=== PATIENT | female | born 1960 | race Hispanic/Latino ===

== ENCOUNTER 2017-11-30 06:12 | Day surgery (SDC) | payer MEDICAID ==
[~2017-11-30 06:12] MED LIST: LACTATED RINGERS 1,000 ML IV SCH; NACL BACTERIOSTATIC INFILTRATI ONE; VERSED IV NR
[2017-11-30] MEDS ORDERED: MARCAINE 0.5% 30 ML INFILTRATI ONE (06:50)
[2017-11-30] MEDS ORDERED: XYLOCAINE 1% 20 mL ONE (06:50)
[2017-11-30] MEDS ORDERED: ANCEF/STERILE WATER 2 GM/20 ML IV NR (07:00)
[2017-11-30] MEDS ORDERED: HEPARIN SUB-Q NR (07:00)
[2017-11-30] MEDS ORDERED: DIPRIVAN 10 MG/ML IV ONE (07:13)
[2017-11-30] MEDS ORDERED: VERSED ONE (07:14)
[2017-11-30] MEDS ORDERED: SUBLIMAZE ONE (07:14)
[2017-11-30] MEDS ORDERED: ZEMURON IV ONE (07:15)
[2017-11-30] MEDS ORDERED: ROBINUL ONE (07:15)
[2017-11-30] MEDS ORDERED: XYLOCAINE MPF 2% ONE (07:15)
[2017-11-30] MEDS ORDERED: TORADOL ONE (07:16)
[2017-11-30] MEDS ORDERED: BLOXIVERZ ONE (07:16)
[2017-11-30] MEDS ORDERED: ZOFRAN ONE (07:16)
[2017-11-30] MEDS ORDERED: PEPCID IV ONE (07:23)
[2017-11-30] MEDS ORDERED: REGLAN ONE (07:24)
[2017-11-30 07:30] LABS: BUN/Creatinine Ratio 31; Blood Urea Nitrogen 22 mg/dL (7-17); Calcium 8.9 mg/dL (8.4-10.2); Hemolysis Index 2
[2017-11-30] MEDS ORDERED: QUELICIN ONE (07:36)
[2017-11-30] MEDS ORDERED: NACL 0.9% IR ONE (08:07)
[2017-11-30] MEDS ORDERED: MARCAINE 0.5% INFILTRATI ONE (08:07)
[2017-11-30] MEDS ORDERED: XYLOCAINE 1% 20 mL INFILTRATI ONE ×2 (08:07)
[2017-11-30] MEDS ORDERED: ZOFRAN IV PRN (08:43)
[2017-11-30] MEDS ORDERED: DILAUDID IV PRN (08:43)
[2017-11-30] MEDS ORDERED: DEMEROL IV PRN (08:43)
--- NOTE | 2017-11-30 08:43 | Anesthesia Consultation ---
Anesthesia Consult and Med Hx Date of service: 11/30/17 - Airway Anesthetic Teeth Evaluation: Poor ROM Head & Neck: Inadequate Mental/Hyoid Distance: Inadequate Mallampati Class: Class III Intubation Access Assessment: Possibly Difficult - Pulmonary Exam CTA: Yes - Cardiac Exam Cardiac Exam: RRR - Pre-Operative Health Status ASA Pre-Surgery Classification: ASA3 Proposed Anesthetic Plan: General - Pulmonary Hx Asthma: Yes Hx Sleep Apnea: Yes - Cardiovascular System Hx Hypertension: Yes (5 YEARS) - Central Nervous System Hx Back Pain: Yes Hx Psychiatric Problems: Yes - Other Systems Hx Alcohol Use: No Hx Substance Use: No Hx Cancer: No Hx Obesity: Yes
--- NOTE | 2017-11-30 08:43 | Anesthesia Day of Surgery ---
Anesthesia Day of Surgery - Day of Surgery Patient Examined: Yes Patient H&P Reviewed: Yes Patient is NPO: Yes
--- NOTE | 2017-11-30 10:02 | Post Operative Note ---
Date of procedure: 11/30/17 (dictation#[id number]) Pre-op diagnosis: Symptomatic Cholelithiasis Post-op diagnosis: same (Also, chronic cholecystitis) Findings: Distended gallbladder with large stone. normal cholangiogram. gallbladder densely adhered to liver bed Procedure: lap robin with IOC Anesthesia: GETA Surgeon: SHARLA SARMIENTO Estimated blood loss: 50-100ml Pathology: list (gallbladder) Specimen disposition: to lab Condition: stable Disposition: PACU
--- NOTE | 2017-11-30 10:07 | Discharge Summary ---
Providers - Providers Date of Admission: 11/30/17 Attending physician: SHARLA SARMIENTO MD Primary care physician: EVENS ROD Hospitalization Reason for admission: day surgery Condition: Stable Pertinent studies: HIDA - abnormal Procedures: lap robin with IOC Hospital course: uneventful day surgery Disposition: DC-01 TO HOME OR SELFCARE Time spent for discharge: 15min - Discharge Diagnoses (1) Symptomatic cholelithiasis Status: Acute Comment: Pt tolerated procedure well. Core Measure Documentation - Palliative Care Palliative Care/ Comfort Measures: Not Applicable - Core Measures Any of the following diagnoses?: none - VTE Discharge Requirements Deep Vein Thrombosis/Pulmonary Embolism Present on Admission: No Exam - Constitutional Vitals: Temp Pulse Resp BP Pulse Ox 98.6 F 78 18 160/77 96 11/30/17 07:28 11/30/17 07:28 11/30/17 07:28 11/30/17 07:28 11/30/17 07:28 General appearance: Present: no acute distress, obese - Respiratory Respiratory effort: normal - Abdominal General gastrointestinal: Present: soft, tender (incisional ) - Psychiatric Psychiatric: other (tired) - Neurologic Neurologic: CNII-XII intact, moves all extremities Plan Diet: advance as tolerated (liquids at first) Wound: open to air, keep clean and dry, other (may shower in 48 hours) Special Instructions: no heavy lifting (and no driving until off pain meds) Follow up with: EVENS ROD [Primary Care Provider] - 7 Days SHARLA SARMIENTO MD [Staff Physician] - 14 Days Prescriptions: HYDROcodone/ACETAMINOPHEN [Hydrocodon-Acetaminophen 5-325] 2 each PO Q6H PRN # 30 tablet PRN Reason: Pain
[2017-11-30] MEDS ORDERED: ATROVENT IH ONE (11:23)
[2017-11-30] MEDS ORDERED: ATROVENT IH SCH (11:30)
--- NOTE | 2017-11-30 16:14 | Post Anesthesia Evaluation ---
- Post Anesthesia Evaluation Patient Participated: Yes Airway Patent: Yes Stable Respiratory Function: Yes Nausea/Vomiting: No Temp > 96.8F: Yes Pain Manageable: Yes Adequeate Hydration: Yes Anesthesia Complications: No
[2017-11-30 21:26] VITALS: BP 143/82
--- NOTE | 2017-12-01 10:25 | Operative Report ---
PREOPERATIVE DIAGNOSES: 1. Symptomatic cholelithiasis. 2. Biliary dysfunction. POSTOPERATIVE DIAGNOSES: 1. Symptomatic cholelithiasis. 2. Biliary dysfunction. 3. Chronic cholecystitis. PROCEDURE PERFORMED: Laparoscopic cholecystectomy with intraoperative cholangiogram. ATTENDING PHYSICIAN: Dr. Cristina Damon. ANESTHESIA: General. ESTIMATED BLOOD LOSS: 50 mL. FLUIDS: 1 liter crystalloid. FINDINGS: Densely adherent distended gallbladder with large stone. SPECIMEN: Gallbladder. DRAINS: None. COMPLICATIONS: Stable, transported to Recovery Room. INDICATIONS: This is a 57-year-old female, who has been having complaints of right upper quadrant pain associated with nausea. Evaluation revealed HIDA scan that showed abdominal pain with CCK administration that was consistent with her prior pain. The patient was assessed to have some component of symptomatic cholelithiasis and biliary dysfunction. PROCEDURE: Risks, benefits, alternatives were explained to the patient. Risks included but were not limited to infection, bleeding, pain, injury to surrounding structures, possible need for further surgery in the future, possible nonresolution or incomplete resolution of symptoms. The patient understood and consented to laparoscopic cholecystectomy. OPERATIVE NOTE: The patient was brought to the operating room and placed in supine position. After adequate general anesthesia was established, patient was prepped and draped in usual sterile fashion. Antibiotics had been administered prior to start of the case. SCDs were in place. Time-out was called. I began by placing a Veress needle in left upper quadrant. I was able to insufflate on the first attempt. We then placed a 5 mm port on the right side of the abdomen using the Optiview technique. I was able to enter the peritoneal cavity safely. Under direct vision, I placed a 5 mm port in the epigastric area and then another one in between the 2 ports and finally a 12 mm port in the supraumbilical position. Please note there were no adhesions from her prior surgeries. Gallbladder was found to be markedly distended. I was unable to grab it; therefore, using an aspiration needle, we partially decompressed it and then clipped the opening to minimize bile spillage. This was a very difficult case from the standpoint that the gallbladder was densely adhered to the liver bed such that slight retraction caused tearing of the liver. A thin layer of the liver bed was pulled up every time we tried to retract the gallbladder, which led to a lot of oozing that we got controlled with a combination of clips and Harmonic scalpel. We did have to insert a Ray-Ivonne in order to apply pressure at some points to control bleeding. I ended up using a partial top down approach in order to establish the layer and prevent further elevation of the liver bed tissue to minimize further bleeding. Once we were able to get into the plane between the gallbladder and the liver, then, we were able to delineate the other areas that we have previously had retracted and tried to separate the thin layer of liver tissue from the gallbladder so as not to cause further bleeding. This added at least 30 minutes extra to the case while we try to separate the densely adherent gallbladder from the liver bed. Thereafter, we proceeded down to the cystic duct. The duodenum was in close proximity, so we had to take extra care. As we have done a good portion of the dissection from the top down, we had much better sense of where the cystic duct was. One clip was placed proximally in relation to the gallbladder. Opening was made in the cystic duct and cholangiogram catheter was inserted. Cholangiogram was done. I saw very good filling of the cystic duct and common duct. There was quick emptying into the duodenum. It tapered normally and we had filling of the left and right common hepatic ducts. I saw no evidence of any filling defects. We had adequate cystic duct that was separate from the common duct. We then proceeded to place three clips distally on the cystic duct in relation to gallbladder and then divided the cystic duct. I dissected out the cystic artery, placed clips on either side and then divided with a Harmonic scalpel and there was only a small amount of tissue remaining that we divided with the Harmonic scalpel, again taking care to push down the liver tissue and not cause further bleeding. The specimen was left on the side. We thoroughly irrigated out the liver bed. We saw excellent hemostasis. Clips were all in place. I placed the specimen and the Ray-Ivonne in the EndoCatch bag and then removed it from the umbilical site. We had already anticipated that we would have to extend the fascia, which we went ahead and did rather than try to stretch it. We removed the specimen and then I closed the fascial defect with a [id number]-[id number] stitch using an 0 Vicryl stitch. We then reinsufflated the abdomen. The repair looked good. There was no bowel or omentum trapped in the repair. We took one last look at the gallbladder bed. It was completely hemostatic. We saw no evidence of any bile drainage or bleeding. Therefore, we felt no need to leave a drain. Everything looked very good. We removed the ports under direct vision, desufflated the abdomen. Local was injected into all the sites. A total of 60 mL of a combination of 0.5% Marcaine and 1% lidocaine were used to anesthetize the port sites. Most of it was used at the umbilical site as I felt that would be the location of most of her pain. A 3-0 Vicryl was used to close the dermis at the umbilical port site with interrupted stitches. Skin was closed with 4-0 Monocryl subcuticular stitches. Skin was clean and dry dressings were placed. The patient tolerated procedure well. There were no complications. All counts were correct at the end of the case. I spoke with the family after the case. They are very appreciative. JOB# [id number] SHA/BRANDY
--- NOTE | 2017-12-02 09:00 | Fluoroscopy Report ---
FLUOROSCOPY CHOLANGIOGRAM OPERATIVE History: Cholelithiasis, chronic cholelithiasis. Findings: Fluoroscopy was provided by radiology during an intraoperative cholangiogram by the surgeon. One fluoroscopic image was captured which demonstrates contrast agent in the common bile duct and duodenum. No filling defect or extravasation is identified. Please correlate with the procedural report as needed.
== END 2017-11-30 12:45 | disposition home or self-care (01) ==
LOC: OR 06:12
PROVIDERS: ATTEND Surgery
DX: K80.10 Calculus of gallbladder with chronic cholecystitis without obstruction (principal); I10 Essential (primary) hypertension; G47.30 Sleep apnea, unspecified; J45.909 Unspecified asthma, uncomplicated; M19.90 Unspecified osteoarthritis, unspecified site; E78.00 Pure hypercholesterolemia, unspecified; E11.9 Type 2 diabetes mellitus without complications; E66.9 Obesity, unspecified; F41.9 Anxiety disorder, unspecified; Z99.89 Dependence on other enabling machines and devices; Z98.890 Other specified postprocedural states; Z68.37 Body mass index [BMI] 37.0-37.9, adult
CPT/HCPCS: 36415; 47563; 74300; 80048; 82962; 88304; J0330; J0690; J1644; J1885; J2250; J2405; J2704; J2710; J2765; J3010; J7120; Q9967

== ENCOUNTER 2018-08-30 06:04 | Day surgery (SDC) | payer MEDICAID, OTHER ==
[2018-08-30] MEDS ORDERED: NACL 0.9% 100 ML ONE (06:33)
[2018-08-30] MEDS ORDERED: HEPARIN 10,000 UNITS/10 ML ONE (06:33)
[2018-08-30] MEDS ORDERED: XYLOCAINE 1% 20 mL ONE (06:33)
[2018-08-30] MEDS ORDERED: MARCAINE 0.25% INFILTRATI ONE ×2 (06:33→08:48)
[2018-08-30] MEDS ORDERED: NACL BACTERIOSTATIC INFILTRATI ONE (06:35)
[2018-08-30] MEDS ORDERED: LACTATED RINGERS 1,000 ML IV SCH (06:40)
--- NOTE | 2018-08-30 06:52 | XRay Report ---
PROCEDURE: XR CHEST 1V AP TECHNIQUE: A portable upright view of the chest was obtained. HISTORY: PREOP ORDER, htn, obesity COMPARISONS: None FINDINGS: The heart size and mediastinum appear normal. The lungs are congested. There are no infiltrates or ef fusions. The bones and soft tissues do not show any acute changes. IMPRESSION: No acute cardiopulmonary process.. This document is electronically signed by Billy Daniels MD., August 30 2018 06:49:18 AM ET
[2018-08-30] MEDS ORDERED: XYLOCAINE MPF 2% ONE (07:10)
[2018-08-30] MEDS ORDERED: SUBLIMAZE ONE (07:10)
[2018-08-30] MEDS ORDERED: DECADRON ONE (07:11)
[2018-08-30] MEDS ORDERED: DIPRIVAN 10 MG/ML IV ONE (07:11)
[2018-08-30] MEDS ORDERED: ZOFRAN ONE (07:11)
[2018-08-30] MEDS ORDERED: VANCOMYCIN/NS 1 GM/250 ML 1 GM/250 ML BAG IV NR (07:15)
[2018-08-30] MEDS ORDERED: DILAUDID IV PRN (07:18)
[2018-08-30] MEDS ORDERED: SUBLIMAZE IV PRN (07:18)
[2018-08-30] MEDS ORDERED: ZOFRAN IV PRN (07:18)
[2018-08-30] MEDS ORDERED: VANCOMYCIN 1,750 MG in NACL 0.9% 500 ML 500 ML IV STA (07:19)
[2018-08-30] MEDS ORDERED: HumaLOG SUB-Q NR ×2 (07:20→09:51)
--- NOTE | 2018-08-30 07:22 | Anesthesia Day of Surgery ---
Anesthesia Day of Surgery - Day of Surgery Patient Examined: Yes Patient H&P Reviewed: Yes Patient is NPO: Yes
--- NOTE | 2018-08-30 07:24 | Anesthesia Consultation ---
Anesthesia Consult and Med Hx Date of service: 08/30/18 - Airway Anesthetic Teeth Evaluation: Good ROM Head & Neck: Adequate Mental/Hyoid Distance: Adequate Mallampati Class: Class II Intubation Access Assessment: Good - Pulmonary Exam CTA: No (Expiratory wheezing bilaterally) - Cardiac Exam Cardiac Exam: RRR - Pre-Operative Health Status ASA Pre-Surgery Classification: ASA3 Proposed Anesthetic Plan: General, IV Sedation - Pulmonary Hx Asthma: Yes Hx Respiratory Symptoms: Yes (FRENCH) SOB: Yes COPD: Yes Hx Sleep Apnea: Yes - Cardiovascular System Hx Hypertension: Yes (2012) - Central Nervous System Hx Back Pain: Yes Hx Psychiatric Problems: No (MEDS FOR ANXIETY D/C) - Endocrine Hx Insulin Dependent Diabetes: Yes Hx Non-Insulin Dependent Diabetes: Yes - Other Systems Hx Alcohol Use: No Hx Substance Use: No Hx Cancer: Yes (Breast) Hx Obesity: Yes
[2018-08-30] MEDS ORDERED: PROVENTIL IH PRN (07:25)
[2018-08-30] MEDS ORDERED: ATROVENT IH NR (07:30)
[2018-08-30] MEDS ORDERED: HumuLIN R ONE (07:33)
[2018-08-30] MEDS ORDERED: KETALAR ONE (07:33)
[2018-08-30] MEDS ORDERED: VERSED ONE (07:34)
[2018-08-30] MEDS ORDERED: HEPARIN 10,000 UNITS/10 ML IV ONE ×2 (08:47→09:05)
[2018-08-30] MEDS ORDERED: XYLOCAINE 1% 20 mL INFILTRATI ONE (08:49)
--- NOTE | 2018-08-30 09:38 | Short Stay Summary ---
Short Stay Documentation Date of service: 08/30/18 - History Principal diagnosis: left breast cancer H&P: obtained from office - Allergies and Medications Current Medications: Allergies Penicillins Adverse Reaction (Verified 08/29/18 10:34) "PASSED OUT" Home Medications Medication Instructions Recorded Confirmed Last Taken Type Albuterol Sulfate [Albuterol 0.63% 0.63 mg IH TID PRN 11/29/17 08/30/18 08/29/18 21:00 History NEBS] Atorvastatin Calcium [Lipitor] 80 mg PO DAILY 11/29/17 08/30/18 08/29/18 21:00 History Insulin Glargine,Hum.rec.anlog 40 units SQ QHS 11/29/17 08/30/18 08/29/18 21:00 History [Lantus] Insulin Lispro [HumaLOG VIAL] 2 units SQ AC 11/29/17 08/30/18 08/29/18 09:00 History Lisinopril [Zestril TAB] 20 mg PO QDAY 11/29/17 08/30/18 08/29/18 09:00 History Metformin HCl [Glucophage] 1,000 mg PO BID 11/29/17 08/30/18 08/29/18 21:00 History Methocarbamol [Robaxin TAB] 750 mg PO Q4H PRN 11/29/17 08/30/18 08/24/18 History Mometasone/Formoterol [Dulera 100 2 puff IH BID 11/29/17 08/30/18 08/29/18 21:00 History Mcg/5 Mcg Inhaler] Montelukast [Singulair] 10 mg PO QPM 11/29/17 08/30/18 08/29/18 09:00 History Tiotropium [Spiriva] 18 mcg IH QDAY 11/29/17 08/30/18 08/29/18 09:00 History Venlafaxine HCl [Venlafaxin ER] 75 mg PO QDAY 08/26/18 08/30/18 08/29/18 21:00 History Albuterol Sulfate [Proventil Hfa] 6.7 gm IH TID PRN 08/29/18 08/30/18 08/29/18 21:00 History Aspirin EC [Ecotrin] 325 mg PO QDAY 08/29/18 08/30/1808/23/19 History Ibuprofen 800 mg PO TID 08/29/18 08/30/18 08/29/18 21:00 History amLODIPine [Norvasc] 10 mg PO DAILY 08/29/18 08/30/18 08/30/18 05:00 History Active Medications Albuterol (Proventil) 2.5 mg IH Q4HRT PRN PRN Reason: Shortness Of Breath Last Admin: 08/30/18 07:56 Dose: 2.5 mg Documented by: Fentanyl (Sublimaze) 50 mcg IV Q5MIN PRN PRN Reason: Pain , Severe (7-10) Stop: 08/30/18 16:00 Hydromorphone HCl (Dilaudid) 0.25 mg IV Q10MIN PRN PRN Reason: Pain, Moderate (4-6) Stop: 08/30/18 16:00 Lactated Ringer's (Lactated Ringers) 1,000 mls @ 75 mls/hr IV DIRECT ISELA Stop: 08/30/18 23:59 Last Admin: 08/30/18 07:00 Dose: 75 mls/hr Documented by: Insulin Human Lispro (Humalog) 10 unit SUB-Q ONCE NR Stop: 08/30/18 23:59 Ipratropium [place] (Atrovent) 0.5 mg IH PREOP NR Stop: 08/30/18 16:00 Last Admin: 08/30/18 07:40 Dose: 0.5 mg Documented by: Ondansetron HCl (Zofran) 4 mg IV ONCE PRN PRN Reason: Nausea And Vomiting Stop: 08/30/18 16:00 - Brief post op/procedure progress note Date of procedure: 08/30/18 Pre-op diagnosis: left breast ca Post-op diagnosis: same Procedure: right sided internal jugular port a cath placement with ultrasound guidance, fluoroscopy Anesthesia: MAC, local Findings: good placement of port without PTX on post op CXR Surgeon: RUTHANN LANIER Estimated blood loss: minimal Pathology: none Condition: stable - Hospital course Hospital course: Pt observed in PACU and discharged to home in stable condition when criteria met. - Disposition Condition at discharge: Good Disposition: DC-01 TO HOME OR SELFCARE Short Stay Discharge Plan Activity: no restrictions Diet: regular Wound: open to air Additional Instructions: SEE PRINTED DISCHARGE INSTRUCTIONS Follow up with: EVENS ROD [Primary Care Provider] - 7 Days RUTHANN LANIER DO [Staff Physician] - 14 Days Prescriptions: Ibuprofen 800 mg PO TID PRN #30 tablet PRN Reason: Pain , Severe (7-10)
--- NOTE | 2018-08-30 09:57 | Fluoroscopy Report ---
FLUOROSCOPY CENTRAL VENOUS DEVICE PLACEMENT History: Breast cancer, insertion of [id number]-s-Bafc. Findings: A single AP view of the chest is presented. A right IJ [id number] has been inserted which terminates near the cavoatrial junction. The lungs are clear. There is no evidence for pneumothorax. Heart and mediastinal structures are unremarkable. Impression: Right IJ [id number] placement. No pneumothorax.
[2018-08-30 11:23] VITALS: BP 128/69
--- NOTE | 2018-08-30 11:27 | Post Anesthesia Evaluation ---
- Post Anesthesia Evaluation Patient Participated: Yes Airway Patent: Yes Stable Respiratory Function: Yes Nausea/Vomiting: No Temp > 96.8F: Yes Pain Manageable: Yes Adequeate Hydration: Yes Anesthesia Complications: No Block Receding Appropriately: Not Applicable Patient on Ventilator: No
--- NOTE | 2018-08-31 15:30 | Operative Report ---
Operative Report Operative Report: Date of procedure: 08/30/18 Pre-op diagnosis: left breast ca Post-op diagnosis: same Procedure: right sided internal jugular port a cath placement with ultrasound guidance, fluoroscopy Anesthesia: MAC, local Findings: good placement of port without PTX on post op CXR Surgeon: RUTHANN LANIER Estimated blood loss: minimal Pathology: none Condition: stable HPI and indication: 58 yo F with newly diagnosed left sided breast cancer. She is a candidate for chemotherapy. Port placement was discussed with her. All risks, benefits, and alternatives discussed and questions answered. Consent obtained. Procedure in detail: The patient was identified in the preoperative area, taken back to operating room, placed on operating table in supine position. After anesthesia was induced both arms were tucked and upper chest and neck were prepped and draped in usual sterile fashion. A timeout was performed. The was placed in Trendelenburg position. Local anesthetic was infiltrated into the skin at the intended puncture site. The right subclavian vein was visualized on ultrasound and one attempt was made at access. The vein was particularly deep due to the patient's body habitus and could not be accessed safely. The right internal jugular vein was identified on ultrasound and was accessed on the first stick. There was return of dark red, nonpulsatile blood. A wire was threaded under fluoroscopy without resistance and positioning confirmed. The needle was then removed. Using a 15 blade, an incision was made in the right upper chest and dissection carried down through the skin and subcutaneous tissue using Bovie electrocautery. Hemostasis was achieved along the way. A pocket for the port was then created bluntly and with electrocautery. The catheter was flushed and tunneled from the pocket to the wire. A breakaway catheter/dilator sheath then inserted over the wire under fluoroscopy, and the wire and dilator removed. The catheter was then inserted through the breakaway catheter which was then removed. The catheter sat flush under the skin. Using continuous fluoroscopy, the catheter was pulled back until the tip was visualized in the right atrium. The catheter was pulled back too far and so a guidewire was passed down into the right atrium and the catheter advanced by 2-3 cm. The guidewire was removed. The catheter was then cut to size and the port attached in the usual fashion. The port was then sutured into place to the pre-pectoral fascia using 2-0 Vicryl interrupted sutures. The wound was irrigated and hemostasis ensured. The port was tested with heparinized saline and there was return of blood and it flushed easily. The port was then instilled with 3000 units of heparin. The deep dermal layer was then closed with interrupted 3-0 Vicryl stitches. The skin incisions were closed with 4-0 Monocryl subcuticular stitches and skin glue. Intraoperative chest x-ray did show good positioning of the port, without evidence of pneumothorax. At the end of the case, all sponge, instrument, sharp counts were correct 2. The patient was awoken from anesthesia and taken to PACU in stable condition.
== END 2018-08-30 11:10 | disposition home or self-care (01) ==
LOC: OR 06:04
PROVIDERS: ATTEND Surgery
DX: C50.912 Malignant neoplasm of unspecified site of left female breast (principal); J44.9 Chronic obstructive pulmonary disease, unspecified; G47.30 Sleep apnea, unspecified; E11.9 Type 2 diabetes mellitus without complications; M19.90 Unspecified osteoarthritis, unspecified site; E66.9 Obesity, unspecified; Z68.41 Body mass index [BMI] 40.0-44.9, adult; Z79.899 Other long term (current) drug therapy; Z79.4 Long term (current) use of insulin; Z79.84 Long term (current) use of oral hypoglycemic drugs; Z79.82 Long term (current) use of aspirin; Z79.01 Long term (current) use of anticoagulants; Z88.0 Allergy status to penicillin; Z98.890 Other specified postprocedural states; Z90.49 Acquired absence of other specified parts of digestive tract; Z98.891 History of uterine scar from previous surgery
CPT/HCPCS: 36561; 71045; 76937; 77001; 82962; C1788; J1100; J1644; J2250; J2405; J2704; J3010; J3370; J7040; J7120; J1815

== ENCOUNTER 2018-09-29 07:52 | Day surgery (SDC) | payer MEDICAID ==
[2018-09-29] MEDS ORDERED: ZOFRAN IV NR (08:00)
[2018-09-29] MEDS ORDERED: PROVENTIL IH NR (08:00)
[2018-09-29] MEDS ORDERED: NACL 0.9% 1000 ML 1,000 ML IV SCH (08:00)
[2018-09-29] MEDS ORDERED: VANCOMYCIN/NS 1 GM/250 ML 1 GM/250 ML BAG IV NR (08:38)
--- NOTE | 2018-09-29 08:48 | Anesthesia Consultation ---
Anesthesia Consult and Med Hx Date of service: 09/29/18 - Airway Anesthetic Teeth Evaluation: Poor ROM Head & Neck: Adequate Mental/Hyoid Distance: Adequate Mallampati Class: Class III Intubation Access Assessment: Possibly Difficult - Pulmonary Exam CTA: No (coarse and distant BS; end-expiratory wheezing bilaterally) - Cardiac Exam Cardiac Exam: RRR - Pre-Operative Health Status ASA Pre-Surgery Classification: ASA3 Proposed Anesthetic Plan: General - Pulmonary Hx Smoking: No Hx Asthma: Yes (ordered albutern neb) Hx Respiratory Symptoms: Yes (FRENCH) SOB: Yes COPD: Yes Home Oxygen Therapy: No Hx Sleep Apnea: Yes (uses CPAP) - Cardiovascular System Hx Hypertension: Yes (2012; took medications ) Hx Heart Attack/AMI: No Hx Cardia Arrhythmia: No - Central Nervous System Hx Neuromuscular Disorder: No CVA: No Hx Back Pain: Yes Hx Psychiatric Problems: No (MEDS FOR ANXIETY D/C) - Endocrine Hx Renal Disease: No Hx Cirrhosis: No Hx Liver Disease: No Hx Insulin Dependent Diabetes: Yes Hx Non-Insulin Dependent Diabetes: Yes - Other Systems Hx Alcohol Use: No Hx Substance Use: No Hx Cancer: Yes (Breast cancer) Hx Obesity: Yes - Additional Comments Anesthesia Medical History Comments: no GAC, no FHAC
--- NOTE | 2018-09-29 08:49 | Anesthesia Day of Surgery ---
Anesthesia Day of Surgery - Day of Surgery Patient Examined: Yes Patient H&P Reviewed: Yes Patient is NPO: Yes Beta Blockers: No (n/a) Cardiac Clearance: No (n/a) Pulmonary Clearance: No (n/a)
[2018-09-29] MEDS ORDERED: VANCOMYCIN 1,500 MG in NACL 0.9% 500 ML 500 ML IV ONE (09:00)
[2018-09-29] MEDS ORDERED: ANCEF/STERILE WATER 2 GM/20 ML IV NR (10:00)
[2018-09-29] MEDS ORDERED: SUBLIMAZE ONE (11:04)
[2018-09-29] MEDS ORDERED: DIPRIVAN 10 MG/ML IV ONE (11:04)
[2018-09-29] MEDS ORDERED: XYLOCAINE MPF 2% ONE (11:05)
[2018-09-29] MEDS ORDERED: ZOFRAN ONE ×2 (11:05→11:11)
[2018-09-29] MEDS ORDERED: DECADRON ONE (11:05)
[2018-09-29] MEDS ORDERED: XYLOCAINE 1% 20 mL ONE (11:07)
[2018-09-29] MEDS ORDERED: XYLOCAINE 1%/ EPI 1:100,000 INFILTRATI ONE (11:07)
[2018-09-29] MEDS ORDERED: MARCAINE 0.25% INFILTRATI ONE (11:07)
[2018-09-29] MEDS ORDERED: MARCAINE 0.5% INFILTRATI ONE (11:57)
[2018-09-29] MEDS ORDERED: HEPARIN IR ONE (11:57)
[2018-09-29] MEDS ORDERED: XYLOCAINE 1% 20 mL INFILTRATI ONE (11:57)
[2018-09-29] MEDS ORDERED: NACL 0.9% IR ONE ×2 (11:57)
[2018-09-29] MEDS ORDERED: HEPARIN 10,000 UNITS/10 ML IV ONE (11:57)
--- NOTE | 2018-09-29 13:12 | Short Stay Summary ---
Short Stay Documentation Date of service: 09/29/18 Narrative H&P: 58 yo F with left breast cancer presents for removal of right sided port and placement of left sided port. Apparently she saw her oncologist Dr. Menjivar for chemotherapy and the chemo nurse was unable to access the port. There was also concern for redness around the port site. The patient was seen after right port placement in the surgery office and started on antibiotics for superficial skin infection. She was doing well however the oncologist requested removal of port and replacement. The patient presents for this today. She has no complaints. There is no erythema or drainage from port site and right upper chest incision has healed well. - History Principal diagnosis: left breast cancer H&P: obtained from office - Allergies and Medications Current Medications: Allergies Penicillins Adverse Reaction (Verified 09/27/18 12:30) "PASSED OUT" Home Medications Medication Instructions Recorded Confirmed Last Taken Type Albuterol Sulfate [Albuterol 0.63% 0.63 mg IH TID PRN 11/29/17 09/27/18 08/29/18 21:00 History NEBS] Atorvastatin Calcium [Lipitor] 80 mg PO DAILY 11/29/17 09/27/18 08/29/18 21:00 History Insulin Glargine,Hum.rec.anlog 40 units SQ QHS 11/29/17 09/27/18 08/29/18 21:00 History [Lantus] Insulin Lispro [HumaLOG VIAL] 2 units SQ AC 11/29/17 09/27/18 08/29/18 09:00 H istory Lisinopril [Zestril TAB] 20 mg PO QDAY 11/29/17 09/27/18 08/29/18 09:00 History Metformin HCl [Glucophage] 1,000 mg PO BID 11/29/17 09/27/18 08/29/18 21:00 History Methocarbamol [Robaxin TAB] 750 mg PO Q4H PRN 11/29/17 09/29/18 09/28/18 21:00 History Mometasone/Formoterol [Dulera 100 2 puff IH BID 11/29/17 09/29/18 09/28/18 21:00 History Mcg/5 Mcg Inhaler] Montelukast [Singulair] 10 mg PO QPM 11/29/17 09/29/18 09/29/18 06:00 History Tiotropium [Spiriva] 18 mcg IH QDAY 11/29/17 09/29/18 09/28/18 09:00 History Venlafaxine HCl [Venlafaxin ER] 75 mg PO QDAY 08/26/18 09/29/18 09/29/18 06:00 History Albuterol Sulfate [Proventil Hfa] 6.7 gm IH TID PRN 08/29/18 09/27/18 08/29/18 21:00 History Aspirin EC [Aspirin Enteric Coated 325 mg PO QDAY 08/29/18 09/27/18 08/23/18 History TAB] amLODIPine [Norvasc] 10 mg PO DAILY 08/29/18 09/29/18 09/28/18 06:00 History Ibuprofen 800 mg PO TID PRN #30 tablet 08/30/18 09/27/18 Unknown Rx Clindamycin [Clindamycin CAP] 300 mg PO Q8H 09/27/18 09/29/18 09/29/18 06:00 History LORazepam [Ativan] 1 mg PO TID 09/27/18 09/29/18 09/29/18 06:00 History Active Medications Albuterol (Proventil) 2.5 mg IH PREOP NR Stop: 09/29/18 23:59 Last Admin: 09/29/18 09:13 Dose: 2.5 mg Documented by: Sodium Chloride (Nacl 0.9% 1000 Ml) 1,000 mls @ 75 mls/hr IV DIRECT ISELA Stop: 09/29/18 23:59 Last Admin: 09/29/18 09:13 Dose: 75 mls/hr Documented by: Ondansetron HCl (Zofran) 4 mg IV PREOP NR Stop: 09/29/18 23:59 Last Admin: 09/29/18 09:13 Dose: 4 mg Documented by: - Brief post op/procedure progress note Date of procedure: 09/29/18 Pre-op diagnosis: left breast cancer, malfunctioning right port Post-op diagnosis: same Procedure: insertion of left internal jugular port a cath with ultrasound guidance and fluoroscopy, removal of right sided port a cath Anesthesia: GETA, local Findings: Good placement of left sided port without PTX. Uneventful removal of right sided port without evidence of gross infection. Surgeon: RUTHANN LANIER Estimated blood loss: minimal Pathology: list (right sided port) Specimen disposition: to lab Condition: stable - Hospital course Hospital course: Pt observed in PACU and discharged home in stable condition when criteria met - Disposition Condition at discharge: Good Disposition: DC-01 TO HOME OR SELFCARE Short Stay Discharge Plan Activity: no restrictions Diet: regular Wound: open to air Additional Instructions: SEE PRINTED DISCHARGE INSTRUCTIONS Follow up with: EVENS ROD [Primary Care Provider] - 7 Days RUTHANN LANIER DO [Staff Physician] - 14 Days Prescriptions: HYDROcodone/APAP 5-325 [[place] 5/325] 1 each PO Q6HR PRN #20 tablet PRN Reason: Pain
--- NOTE | 2018-09-29 13:20 | Fluoroscopy Report ---
Single view chest: Compared to 08/30/18. History: Left breast cancer. Findings: Cardiomegaly. Trachea is midline. Left Axcgzy-h-Zohc tip in right atrium. Pleural pericardial adhesions left lung. Impression: Tip of right Eczvsb-k-Nwhu in right atrium.
--- NOTE | 2018-09-29 19:41 | Operative Report ---
PREOPERATIVE DIAGNOSIS: Left breast cancer malfunctioning right port. POSTOPERATIVE DIAGNOSIS: Left breast cancer malfunctioning right port. PROCEDURE: Insertion of left internal jugular Port-A-Cath with ultrasound guidance and fluoroscopy, removal of right-sided Port-A-Cath. ANESTHESIA: General endotracheal anesthesia, local. FINDINGS: Good placement of left-sided port without pneumothorax. Uneventful removal of right-sided port without evidence of gross infection. SURGEON: Isela Ballard DO. ESTIMATED BLOOD LOSS: Minimal. PATHOLOGY: Right-sided port specimen. SPECIMEN DISPOSITION: To lab. CONDITION AND DISPOSITION: The patient is stable to PACU. HISTORY OF PRESENT ILLNESS AND INDICATION: The patient is a 58-year-old female who was diagnosed with left-sided breast cancer and a candidate for chemotherapy. Her oncologist is Dr. Rodrigues. The patient underwent port placement on 08/30/2018 on the right hand side and port placement was uneventful. After port placement, the patient experienced some pain in the area and was seen multiple times in the surgical clinic. She did develop a very superficial skin infection at the site of the right IJ puncture for which she was placed on antibiotics. There were no signs of infection at the port site. The patient presented for chemotherapy several days ago and the port could not be accessed. Also, Dr. Rodrigues expressed some concern over possible infection of the port. The patient had been seen in the Emergency Room 1 week prior and underwent workup for infection, which was negative. She had remained afebrile. Oncology however, did not feel comfortable using the port and requested for removal and replacement of the port. The patient presents today and has no complaints. The port site is nonerythematous without any drainage. I discussed all risks, benefits, alternatives to removal and replacement of the port with the patient and questions answered. Consent was obtained. PROCEDURE IN DETAIL: The patient was identified in the preoperative area and taken back to the operating room and placed on the operating table in supine position. After anesthesia was induced, bilateral arms were tucked with all bony prominences padded and a shoulder roll was placed. Bilateral upper chest and neck were prepped and draped in the usual sterile fashion. Timeout was performed. We first started by placing the new port on the left side. Local anesthetic was infiltrated into the skin and subcutaneous tissue at all incision sites. Using ultrasound guidance, the left subclavian vein was identified. It did look particularly deep on ultrasound; however, 2 attempts were made at access. The first attempt was successful with return of dark red nonpulsatile blood; however, the wire could not be threaded without resistance even under fluoroscopic guidance. On the second attempt, the subclavian vein could not be accessed. Therefore, it was decided to perform a left IJ access. Pressure was held at the site and hemostasis achieved. The left IJ vein was identified on ultrasound guidance and compressible. It was accessed on the first stick with return of dark red nonpulsatile blood. Wire was threaded without resistance and wire positioning confirmed using fluoroscopy. The wire was then secured to the drapes using hemostat. Local anesthetic was infiltrated into the upper chest at the site of the incision. A 4 cm transverse incision was made using a 15 blade and dissection carried down through the skin and subcutaneous tissue using Bovie electrocautery until the prepectoral fascia was identified. A pocket was then created for the port using combination of blunt dissection and electrocautery. Hemostasis was carefully ensured. The subcutaneous tissue along the anticipated tunneling site was infiltrated with local anesthetic. The catheter was then tunneled from the pocket to the wire. The dilator catheter sheath was then inserted over the wire and the vein dilated under fluoroscopic guidance. The wire and dilator were then removed and the catheter passed through the breakaway catheter. The breakaway catheter was removed in the usual fashion and the port catheter was seen lying flush underneath the skin. The catheter was then pulled back under fluoroscopy and the tip seen in the right atrium. There was no ectopy on the monitor. The port was then cut to size and assembled in the usual fashion. The port was tested with heparinized saline. There was good return of dark red blood and the port flushed easily. The port was instilled with 3 mL of heparin. The Port-A-Cath was sutured to the prepectoral fascia in 2 locations using a 2-0 Vicryl sutures. The wound was irrigated and hemostasis carefully ensured. The deep dermal layer was then closed with 3-0 Vicryl interrupted suture. The skin incisions were closed with 4-0 Monocryl running subcuticular stitch and skin glue. We then turned our attention to removing the right-sided port. Local anesthetic was infiltrated at the intended incision site and an incision was made at the previous scar using a 15 blade. Dissection was carried down through the skin and subcutaneous tissue using a hemostat and blunt dissection. The port and the catheter were identified and grasped between 2 hemostats. The catheter was cut and removed intact and pressure was held at the site for approximately 10 minutes. There was no bleeding from the tract. The sutures through the port were then cut and the port removed from the pocket. Both pieces of the port were passed off the table as a specimen. There was no evidence of gross infection. There was no purulent drainage. There was a very small seroma which was evacuated. The wound was irrigated copiously with saline and hemostasis ensured. The deep dermal layer was closed with interrupted 3-0 Vicryl sutures. The skin incision was closed with 4-0 Monocryl subcuticular stitch and skin glue. At the end of the case, all sponge, instrument, sharp counts were correct x 2. A postoperative chest x-ray was performed in the operating room, which showed good position of the port without evidence of pneumothorax. The patient was then awoken from anesthesia, extubated, and taken to PACU in stable condition. JOB# [id number] TRAY/BRANDY MUIR
[2018-09-29 21:32] VITALS: BP 128/58
== END 2018-09-29 07:53 | disposition home or self-care (01) ==
LOC: OR 07:52
PROVIDERS: ATTEND Surgery
DX: C50.912 Malignant neoplasm of unspecified site of left female breast (principal); T82.898A Other specified complication of vascular prosthetic devices, implants and grafts, initial encounter; E78.00 Pure hypercholesterolemia, unspecified; I10 Essential (primary) hypertension; J44.9 Chronic obstructive pulmonary disease, unspecified; G47.30 Sleep apnea, unspecified; E66.9 Obesity, unspecified; M19.90 Unspecified osteoarthritis, unspecified site; E11.9 Type 2 diabetes mellitus without complications; Z88.0 Allergy status to penicillin; Z79.899 Other long term (current) drug therapy; Z79.84 Long term (current) use of oral hypoglycemic drugs; Z79.4 Long term (current) use of insulin; Z98.890 Other specified postprocedural states; Z90.49 Acquired absence of other specified parts of digestive tract; Z68.41 Body mass index [BMI] 40.0-44.9, adult; Z98.891 History of uterine scar from previous surgery; Y83.8 Other surgical procedures as the cause of abnormal reaction of the patient, or of later complication, without mention of misadventure at the time of the procedure; Y92.89 Other specified places as the place of occurrence of the external cause
CPT/HCPCS: 36561; 36590; 77001; 82962; 87076; 87116; C1788; J0690; J1100; J1644; J2405; J2704; J3010; J3370; J7030; J7040; J7050

== ENCOUNTER 2019-02-01 07:59 | Inpatient (IN) | payer MEDICAID, OTHER ==
--- NOTE | 2019-01-30 14:57 | Anesthesia Consultation ---
Anesthesia Consult and Med Hx Date of service: 01/30/19 - Airway Anesthetic Teeth Evaluation: Poor ROM Head & Neck: Adequate Mental/Hyoid Distance: Adequate Mallampati Class: Class II Intubation Access Assessment: Good - Pulmonary Exam CTA: Yes - Cardiac Exam Cardiac Exam: RRR - Pre-Operative Health Status ASA Pre-Surgery Classification: ASA3 Proposed Anesthetic Plan: General Nerve Block: PEC Block - Pulmonary Hx Smoking: No Hx Asthma: Yes (ordered albutern neb) Hx Respiratory Symptoms: Yes (FRENCH) SOB: Yes COPD: Yes Hx Sleep Apnea: Yes (uses CPAP) - Cardiovascular System Hx Hypertension: Yes (2012; took medications ) Hx Heart Attack/AMI: No Hx Cardia Arrhythmia: No - Central Nervous System Hx Neuromuscular Disorder: No CVA: No Hx Back Pain: Yes Hx Psychiatric Problems: No (MEDS FOR ANXIETY D/C) - Endocrine Hx Renal Disease: No Hx Cirrhosis: No Hx Liver Disease: No Hx Insulin Dependent Diabetes: Yes Hx Non-Insulin Dependent Diabetes: Yes - Other Systems Hx Alcohol Use: No Hx Substance Use: No Hx Cancer: Yes (Breast cancer) Hx Obesity: Yes
[~2019-02-01 07:59] MED LIST changes: -LACTATED RINGERS 1,000 ML IV SCH; +METHYLENE BLUE ONE; -NACL BACTERIOSTATIC INFILTRATI ONE; +NACL P/F VIAL (10 ML) 10 ML ONE; -VERSED IV NR; +WATER FOR IRRIG STERILE IR ONE
[2019-02-01] MEDS ORDERED: XYLOCAINE 1% 20 mL ONE ×2 (08:44→10:01)
[2019-02-01] MEDS ORDERED: SUBLIMAZE IV PRN (09:12)
[2019-02-01] MEDS ORDERED: SUBLIMAZE IV NR (09:12)
[2019-02-01] MEDS ORDERED: DILAUDID IV PRN (09:30)
[2019-02-01] MEDS ORDERED: ZOFRAN IV PRN ×2 (09:30→14:56)
[2019-02-01] MEDS ORDERED: MARCAINE-EPI 0.25%-1:200,000 INFILTRATI ONE (09:36)
--- NOTE | 2019-02-01 09:56 | Anesthesia Day of Surgery ---
Anesthesia Day of Surgery - Day of Surgery Patient Examined: Yes Patient H&P Reviewed: Yes Patient is NPO: Yes
[2019-02-01] MEDS ORDERED: NEURONTIN PO NR (10:00)
[2019-02-01] MEDS ORDERED: VERSED IV NR (10:00)
[2019-02-01] MEDS ORDERED: TYLENOL PO NR (10:00)
[2019-02-01] MEDS ORDERED: LACTATED RINGERS 1,000 ML IV SCH ×2 (10:00→15:00)
[2019-02-01] MEDS ORDERED: MARCAINE 0.25% INFILTRATI ONE ×3 (10:02→14:25)
[2019-02-01] MEDS ORDERED: SUBLIMAZE ONE ×2 (10:09→10:55)
[2019-02-01] MEDS ORDERED: DIPRIVAN 10 MG/ML IV ONE (10:10)
[2019-02-01] MEDS ORDERED: XYLOCAINE MPF 2% ONE (10:14)
[2019-02-01] MEDS ORDERED: VANCOMYCIN/NS 1 GM/250 ML 1 GM/250 ML BAG IV NR (10:30)
[2019-02-01] MEDS ORDERED: NACL P/F VIAL (10 ML) INFILTRATI ONE (11:01)
[2019-02-01] MEDS ORDERED: METHYLENE BLUE IRRIGATION ONE (11:01)
[2019-02-01] MEDS ORDERED: XYLOCAINE 1% 20 mL INFILTRATI ONE ×2 (11:22→14:25)
[2019-02-01] MEDS ORDERED: ZOFRAN ONE (12:00)
[2019-02-01] MEDS ORDERED: QUELICIN ONE (12:00)
[2019-02-01] MEDS ORDERED: LACTATED RINGERS 1,000 ML ONE (12:18)
--- NOTE | 2019-02-01 12:23 | Ultrasound Report ---
Left breast needle localization utilizing ultrasound guidance. History: Patient presents for left breast needle localization for left partial mastectomy due to left breast carcinoma. Comparison: Prior mammogram, 07/14/2018 Procedure: After informed consent was obtained, the left breast was prepped in sterile fashion and ut ilizing ultrasound guidance, the irregular hypoechoic mass seen in the extreme posterior 3:00 o'clock position of the left breast was localized utilizing a Kopans wire. 1% lidocaine was utilized to anes thetize the soft tissues. The patient tolerated the procedure well and there were no complications. . Impression: Successful wire / needle localization of mass in the left breast 3 o'clock position. Signer Name: Yesenia Bunch MD Signed: 02/01/2019 12:19 PM Workstation Name: [id number]
--- NOTE | 2019-02-01 12:25 | Ultrasound Report ---
Left breast needle localization utilizing ultrasound guidance. History: LT BREAST MASSES- history of left breast carcinoma presenting for left partial mastectomy Comparison: Prior left mammogram, 07/14/2018 Procedure: After informed consent was obtained, the left breast was prepped in sterile fashion and ut ilizing ultrasound guidance, the mass seen in the posterior 1-2 o'clock position of the left breast w as localized utilizing a Kopans wire. 1% lidocaine was utilized to anesthetize the soft tissues. The patient tolerated the procedure well and there were no complications. . Impression: Successful wire / needle localization of biopsy proven malignancy in the left breast 1-2 o'clock position. Signer Name: Yesenia Bunch MD Signed: 02/01/2019 12:20 PM Workstation Name: [id number]
--- NOTE | 2019-02-01 12:29 | Mammography Report ---
Left breast needle localization. History: LT BREAST CANCER, patient presents for left partial mastectomy. Comparison: Prior mammogram, 07/14/2018 Procedure: After informed consent was obtained, the left breast was prepped in sterile fashion and ut ilizing digital mammographic technique, the most posterior mass with clip seen in the 1 o'clock posi tion of the left breast was localized utilizing a Kopans wire. 1% lidocaine was utilized to anestheti ze the soft tissues. The second mass, seen in the same location but more anteriorly located, was loca lized earlier using ultrasound guidance. The patient tolerated the procedure well and there were no c omplications. Post needle placement mammographic images demonstrates 2 wires bracketing the area of biopsy-proven m alignancy in the axillary tail region of the left breast. There is also a third wire, placed under so nographic guidance, in the extreme posterior and lateral soft tissues of the left breast. . Impression: Successful wire bracket localization of multifocal carcinoma in the left breast axillary tail. Signer Name: Yesenia Bunch MD Signed: 02/01/2019 12:24 PM Workstation Name: [id number]
[2019-02-01] MEDS ORDERED: NACL 0.9% 100 ML ONE (12:30)
[2019-02-01] MEDS ORDERED: NEO SYNEPHRINE ONE (12:30)
[2019-02-01] MEDS ORDERED: WATER FOR IRRIG STERILE IR ONE (12:43)
--- NOTE | 2019-02-01 14:46 | Operative Report ---
Operative Report Operative Report: February 01, 2019 Preoperative diagnosis: Left breast cancer of the upper outer quadrant-axillary tail Postoperative diagnosis: Same Procedure: Left needle localization partial mastectomy of the upper outer quadrant and SLNB followed by immediate ALND Surgeon: Julita Arriaga MD Career Coach: Sussy Conner MD Anesthesia: General Findings: Left wires and clips present within radiograph specimen; x 1 SLN positive for malignancy and then proceeded with an ALND Complications: None EBL: 50-100 Drains: 19 [place] Disposition: PACU in good condition Indications for operative procedure: This is a 58 year old lady with left breast cancer of the upper outer quadrant-axillary tail, Stage II [id number] ER/MI negative and HER-2 positive. She recently completed neoadjuvant chemotherapy and patient with known axillary adalberto involvement. Recommendations were to proceed with breast conservation. Followup PET and breast MRI with significant improvement in breast cancer tumor size and decrease adalberto involvement. Radiology bracketed area of cancer of the upper outer quadrant/axillary tail as well as placing a wire in known malignant axillary node. She understands the role of adjuvant radiation therapy. She wished to proceed with the above procedure. Procedure in detail: The patient was taken to radiology for wire placement for localization of known area of cancer. Patient was then taken to the operating room. Gen. anesthesia was administered. The left nipple was injected with radioisotope and 1 cc of blue dye mixed with 1 cc of saline. Left breast and axilla were prepped and draped in the normal sterile operative fashion. The wires were identified-3 wires placed (2 marking breast cancer location and 1 marking lymph node). Timeout was performed. Gamma probe was inserted into the axilla. The area of hot spot was identified-at location of axillary wire. Ultrasound was used as well to oriana the area of incision of the 2:00 position towards the axillary tail. Breast clips from prior biopsies were noted as well as prior positive axillary lympn node-all noted on ultrasound. An axillary tail incision was made with a 15 blade knife (encompassed both areas of known multifocal disease as well as axillary lymph node) with dissection taken down to the subcutaneous tissues. The axillary fascia was opened with the Bovie cautery. 2 SLNs were identified. All remaining counts were less than 10% of the highest count. Lymph nodes were sent to pathology with findings of first SLN positive for malignancy. Patient would need an ALND. Attention was then taken towards the left breast. First began raising of the superior flap with removal of the wires from the skin with dissection taken down to the pectoralis muscle, followed by raising of the inferior flap, medial flap and lateral flap with all flaps taken down to the pectoralis muscle. The breast area of concern was appropriately removed posteriorly from the pectoralis muscle with the aid of the Bovie cautery. It was decided to remove the partial mastectomy en bloc with the ALND given known area of cancer of the partial mastectomy was part of the axillary tail that was attached to the axilla. Attention was then taken towards the left axilla. First began opening of the axillary fascia further. The lattismus dorsi muscle was identified and followed superiorly. Then proceeded with identification of the axillary vein followed by identification of the thoracodorsal bundle and long thoracic nerve. Axillary lymph nodes were then removed from the above boundaries with the aid of the bovie cautery in a sweeping-like motion and then sent to pathology. Axillary lymph nodes from level I and II were removed. Both nerves were identified and unharmed. Hemostasis was noted. The axilla was noted for significant fat and a few noted probable positive axillary lymph nodes. The chest wall was irrigated and suctioned. Hemostasis was noted. Specimen was marked and then sent to pathology and radiology; radiograph specimen with wires and clips present. Breast/axillary cavity was irrigated and hemostasis was obtained. A 19 [place] drain was placed. The posterior deep breast tissues and axillary fascia were approximated and closed using interrupted 3-0 Vicryl. The subcutaneous tissues were approximated and closed using interrupted 3-0 Vicryl followed by closing of the skin with a running 4-0 Monocryl and skin affix. The patient tolerated surgery very well and she was awaken from anesthesia without any complication and transported to PACU in good condition.
--- NOTE | 2019-02-01 14:53 | Short Stay Summary ---
Short Stay Documentation Date of service: 02/01/19 - History H&P: obtained from office - Allergies and Medications Current Medications: Allergies Penicillins Adverse Reaction (Verified 09/27/18 12:30) "PASSED OUT" Home Medications Medication Instructions Recorded Confirmed Last Taken Type Albuterol Sulfate [Albuterol 0.63% 0.63 mg IH TID PRN 11/29/17 01/30/19 08/29/18 21:00 History NEBS] Atorvastatin Calcium [Lipitor] 80 mg PO DAILY 11/29/17 01/30/19 08/29/18 21:00 History Insulin Glargine,Hum.rec.anlog 40 units SQ QHS 11/29/17 01/30/19 08/29/18 21:00 History [Lantus] Insulin Lispro [HumaLOG VIAL] 2 units SQ AC 11/29/17 01/30/19 08/29/18 09:00 History Lisinopril [Zestril TAB] 20 mg PO QDAY 11/29/17 01/30/19 08/29/18 09:00 History Metformin HCl [Glucophage] 1,000 mg PO BID 11/29/17 01/30/19 08/29/18 21:00 History Mometasone/Formoterol [Dulera 100 2 puff IH BID 11/29/17 01/30/19 09/28/18 21:00 History Mcg/5 Mcg Inhaler] Montelukast [Singulair] 10 mg PO QPM 11/29/17 01/30/19 09/29/18 06:00 History Tiotropium [Spiriva] 18 mcg IH QDAY 11/29/17 01/30/19 09/28/18 09:00 History methOCARBAMOL [Robaxin TAB] 750 mg PO Q4H PRN 11/29/17 01/30/19 09/28/18 21:00 History Venlafaxine HCl [Venlafaxin ER] 75 mg PO QDAY 08/26/18 01/30/19 09/29/18 06:00 History Albuterol Sulfate [Proventil Hfa] 6.7 gm IH TID PRN 08/29/18 01/30/19 08/29/18 21:00 History Aspirin EC 325 mg PO QDAY 08/29/18 01/30/19 08/23/18 History amLODIPine [Norvasc] 10 mg PO DAILY 08/29/18 01/30/19 09/28/18 06:00 History Ibuprofen [Ibuprofen 800] 800 mg PO TID PRN #30 tablet 08/30/18 01/30/19 Unknown Rx LORazepam [Ativan] 1 mg PO TID PRN 09/27/18 01/30/19 09/29/18 06:00 History HYDROcodone/APAP 5-325 [[place] 1 each PO Q6HR PRN #20 tablet 09/29/18 01/30/19 Unknown Rx 5/325] Bupropion HBr 150 mg PO DAILY 01/20/19 01/30/19 Unknown History Furosemide [Lasix TAB] 20 mg PO DAILY PRN 01/20/19 01/30/19 Unknown History Magnesium 400 mg PO TID 01/20/19 01/30/19 Unknown History Active Medications Acetaminophen (Tylenol) 650 mg PO ONCE NR Stop: 02/01/19 16:00 Last Admin: 02/01/19 10:03 Dose: 650 mg Documented by: Celecoxib (Celebrex) 200 mg PO PREOP NR Stop: 02/01/19 16:00 Last Admin: 02/01/19 10:03 Dose: 200 mg Documented by: Fentanyl (Sublimaze) 50 mcg IV Q5MIN PRN PRN Reason: Pain , Severe (7-10) Stop: 02/01/19 20:00 Gabapentin (Neurontin) 300 mg PO PREOP NR Stop: 02/01/19 16:00 Last Admin: 02/01/19 10:03 Dose: 300 mg Documented by: Hydromorphone HCl (Dilaudid) 0.5 mg IV Q10MIN PRN PRN Reason: Pain , Severe (7-10) Stop: 02/01/19 17:00 Lactated Ringer's (Lactated Ringers) 1,000 mls @ 125 mls/hr IV DIRECT ISELA Last Admin: 02/01/19 10:03 Dose: 125 mls/hr Documented by: Vancomycin HCl (Vancomycin/Ns 1 Gm/250 Ml) 1 gm in 250 mls @ 166.667 mls/hr IV PREOP NR; Protocol Stop: 02/01/19 23:59 Midazolam HCl (Versed) 2 mg IV PREOP NR Stop: 02/01/19 23:59 Ondansetron HCl (Zofran) 4 mg IV ONCE PRN PRN Reason: Nausea And Vomiting - Brief post op/procedure progress note Date of procedure: 02/01/19 Pre-op diagnosis: Left breast cancer of the upper outer quadrant Post-op diagnosis: same Procedure: Left partial mastectomy with SLNB followed by immediate ALND Anesthesia: GETA Findings: Left wires and clips present within radiograph specimen; first SLN positive and proceeded with an ALND Surgeon: FINN HER Biomedical Scientist: SHIMON NELSON Estimated blood loss: 50-100ml Pathology: list (left partial mastectomy, left ALND) Specimen disposition: to lab Condition: stable - Disposition Condition at discharge: Good Disposition: DC/TX-02 SHRT-TRM GEN HOSP IP Short Stay Discharge Plan Activity: other (no heavy lifting) Diet: regular Wound: keep clean and dry (may shower in 48 hours) Follow up with: EVENS ROD [Primary Care Provider] - 7 Days FINN HER MD [Staff Physician] - 7 Days
[2019-02-01] MEDS ORDERED: PERCOCET 5/325 PO PRN (14:56)
[2019-02-01] MEDS ORDERED: BENADRYL PO PRN (14:56)
[2019-02-01] MEDS ORDERED: TYLENOL PO PRN (14:56)
[2019-02-01] MEDS ORDERED: REGLAN PO PRN (14:56)
[2019-02-01] MEDS ORDERED: SODIUM CHLORIDE FLUSH SYRINGE 10 ML IV PRN ×2 (14:56→17:47)
[2019-02-01] MEDS ORDERED: MORPHINE IV PRN (14:58)
--- NOTE | 2019-02-01 15:05 | Mammography Report ---
Left breast tissue specimen radiograph. History: Status post left partial mastectomy Comparison: Localization performed today Findings: Specimen radiograph demonstrates at least 2 masses as well as 2 biopsy clips. A single wire is present. Signer Name: Yesenia Bunch MD Signed: 02/01/2019 3:00 PM Workstation Name: [id number]
[2019-02-01] MEDS ORDERED: PROVENTIL IH ONE ×2 (15:25→15:30)
[2019-02-01] MEDS ORDERED: NON-FORMULARY (Albuterol Sulfate [Albuterol 0.63% Nebs] 0.63 MG) IH PRN (15:29)
[2019-02-01] MEDS ORDERED: PROAIR IH PRN (15:29)
[2019-02-01] MEDS ORDERED: D50W (25GM) Syringe IV PRN ×2 (15:30→20:38)
[2019-02-01] MEDS ORDERED: PROVENTIL IH PRN ×2 (15:34→17:47)
[2019-02-01] MEDS ORDERED: HumuLIN R IV ONE (16:07)
[2019-02-01] MEDS ORDERED: HumuLIN R ONE (16:18)
[2019-02-01] MEDS ORDERED: MUCOMYST INHALATION INHALATION ONE (16:23)
[2019-02-01] MEDS ORDERED: LASIX IV ONE (16:32)
[2019-02-01] MEDS ORDERED: LASIX ONE (16:32)
--- NOTE | 2019-02-01 16:55 | XRay Report ---
CHEST 1 VIEW INDICATION: R/O PULMONARY EDEMA. COMPARISON: 09/29/2018. FINDINGS: Support devices: Left IJ port tip projects over the right atrium, unchanged. Heart: Enlarged, unchanged. Lungs/Pleura: There are mild increased interstitial opacities within both lungs suggestive of mild in terstitial edema. No focal consolidation, significant effusion, or pneumothorax. IMPRESSION: 1. Mild interstitial pulmonary edema. Signer Name: Edwar Musa MD Signed: 02/01/2019 4:51 PM Workstation Name: [id number]
--- NOTE | 2019-02-01 17:49 | History and Physical Report ---
History of Present Illness Date of admission: 02/01/19 14:56 Chief complaint: My breathing is not right, but i feel ok History of present illness: 58 YO Female with BrCa, Obesity Hypoventilation Syndrome, HTN, [place] on CPAP, Asthma, Anxiety, DM, Lumbar Pain, COPD admitted directly to ICU. Pt experienced shortness of breath postoperatively and was found to have symptoms consistent with COPD Exacerbation complicated by Acute Hypoxemic Respiratory Failure. Pt seen and evaluated upon arrival in the ICU. Pt conversant, with bipap in place. Pt denies fever, chills, CP, Palpitations, NVD, Trauma, BRBPR, productive cough, skin rash, or recent ill contacts. Pt states that she is hungry and would like to eat. No reported nursing events. Past History Past Medical History: cancer, COPD, hypertension, other (Anxiety, [place], Obesity Hypoventilation) Past Surgical History: mastectomy Social history: . denies: smoking, alcohol abuse, prescription drug abuse Family history: diabetes, other (RA) Medications and Allergies Allergies Allergy/AdvReac Type Severity Reaction Status Date / Time Penicillins AdvReac "PASSED Verified 09/27/18 12:30 OUT" Home Medications Medication Instructions Recorded Confirmed Last Taken Type Albuterol Sulfate [Albuterol 0.63% 0.63 mg IH TID PRN 11/29/17 01/30/19 08/29/18 21:00 History NEBS] Atorvastatin Calcium [Lipitor] 80 mg PO DAILY 11/29/17 01/30/19 08/29/18 21:00 History Insulin Glargine,Hum.rec.anlog 40 units SQ QHS 11/29/17 01/30/19 08/29/18 21:00 History [Lantus] Insulin Lispro [HumaLOG VIAL] 2 units SQ AC 11/29/17 01/30/19 08/29/18 09:00 History Lisinopril [Zestril TAB] 20 mg PO QDAY 11/29/17 01/30/19 08/29/18 09:00 History Metformin HCl [Glucophage] 1,000 mg PO BID 11/29/17 01/30/19 08/29/18 21:00 History Mometasone/Formoterol [Dulera 100 2 puff IH BID 11/29/17 01/30/19 09/28/18 21:00 History Mcg/5 Mcg Inhaler] Montelukast [Singulair] 10 mg PO QPM 11/29/17 01/30/19 09/29/18 06:00 History Tiotropium [Spiriva] 18 mcg IH QDAY 11/29/17 01/30/19 09/28/18 09:00 History methOCARBAMOL [Robaxin TAB] 750 mg PO Q4H PRN 11/29/17 01/30/19 09/28/18 21:00 History Venlafaxine HCl [Venlafaxin ER] 75 mg PO QDAY 08/26/18 01/30/19 09/29/18 06:00 History Albuterol Sulfate [Proventil Hfa] 6.7 gm IH TID PRN 08/29/18 01/30/19 08/29/18 21:00 History Aspirin EC 325 mg PO QDAY 08/29/18 01/30/19 08/23/18 History amLODIPine [Norvasc] 10 mg PO DAILY 08/29/18 01/30/19 09/28/18 06:00 History Ibuprofen [Ibuprofen 800] 800 mg PO TID PRN #30 tablet 08/30/18 01/30/19 Unknown Rx LORazepam [Ativan] 1 mg PO TID PRN 09/27/18 01/30/19 09/29/18 06:00 History HYDROcodone/APAP 5-325 [[place] 1 each PO Q6HR PRN #20 tablet 09/29/18 01/30/19 Unknown Rx 5/325] Bupropion HBr 150 mg PO DAILY 01/20/19 01/30/19 Unknown History Furosemide [Lasix TAB] 20 mg PO DAILY PRN 01/20/19 01/30/19 Unknown History Magnesium 400 mg PO TID 01/20/19 01/30/19 Unknown History Active Meds: Active Medications Acetaminophen (Tylenol) 650 mg PO Q6H PRN PRN Reason: Pain MILD(1-3)/Fever >100.5/SINGER Albuterol (Proventil) 2.5 mg IH TIDRT PRN PRN Reason: Wheezing Arformoterol Tartrate (Brovana Nebu) 15 mcg IH Q12HRT ISELA Budesonide (Pulmicort) 0.5 mg IH Q12HRT ISELA Dextrose (D50w (25gm) Syringe) 50 ml IV PRN PRN PRN Reason: Hypoglycemia Diphenhydramine HCl (Benadryl) 25 mg PO Q8H PRN PRN Reason: Itching Docusate Sodium (Colace) 100 mg PO BID ISELA Fentanyl (Sublimaze) 50 mcg IV Q5MIN PRN PRN Reason: Pain , Severe (7-10) Stop: 02/01/19 20:00 Lactated Ringer's (Lactated Ringers) 1,000 mls @ 125 mls/hr IV DIRECT ISELA Last Admin: 02/01/19 10:03 Dose: 125 mls/hr Documented by: Vancomycin HCl (Vancomycin/Ns 1 Gm/250 Ml) 1 gm in 250 mls @ 166.667 mls/hr IV PREOP NR; Protocol Stop: 02/01/19 23:59 Lactated Ringer's (Lactated Ringers) 1,000 mls @ 125 mls/hr IV DIRECT ISELA Insulin Human Regular (Humulin R) 0 units SUB-Q Q6HR ISELA; Protocol Metoclopramide HCl (Reglan) 10 mg PO Q6H PRN PRN Reason: Nausea And Vomiting Midazolam HCl (Versed) 2 mg IV PREOP NR Stop: 02/01/19 23:59 Morphine Sulfate (Morphine) 2 mg IV Q4H PRN PRN Reason: Pain, Moderate (4-6) Ondansetron HCl (Zofran) 4 mg IV ONCE PRN PRN Reason: Nausea And Vomiting Ondansetron HCl (Zofran) 4 mg IV Q8H PRN PRN Reason: N/V unrelieved by Reglan Oxycodone/Acetaminophen (Percocet 5/325) 1 tab PO Q6H PRN PRN Reason: Pain, Moderate (4-6) Sodium Chloride (Sodium Chloride Flush Syringe 10 Ml) 10 ml IV PRN PRN PRN Reason: LINE FLUSH Tiotropium [place] (Spiriva) 1 puff IH QDAY [facility] Review of Systems Constitutional: no weight loss, no weight gain, no fever, no chills Ears, nose, mouth and throat: no ear pain, no ear discharge, no tinnitis, no decreased hearing, no nose pain, no nasal congestion Breasts: no change in shape, no swelling, no mass Cardiovascular: no chest pain, no orthopnea, no palpitations, no rapid/irregular heart beat Respiratory: shortness of breath, no cough, no cough with sputum, no excessive sputum Gastrointestinal: no nausea, no vomiting, no diarrhea, no constipation, no change in bowel habits Genitourinary Female: no pelvic pain, no flank pain, no menorrhagia, no dysuria, no urinary frequency, no urgency, no stress incontinence, no post void dribbling Rectal: no pain Musculoskeletal: no neck stiffness, no neck pain, no shooting arm pain, no arm numbness/tingling, no low back pain, no shooting leg pain, no leg numbne ss/tingling Integumentary: no rash, no pruritis, no redness, no sores, no wounds, no jaundice Neurological: no head injury, no transient paralysis, no paralysis, no weakness, no parathesias, no numbness, no tingling, no seizures Psychiatric: no anxiety, no memory loss, no change in sleep habits, no sleep disturbances, no hypersomnia, no change in appetite, no suicidal ideation Endocrine: no cold intolerance, no heat intolerance, no polyphagia, no excessive thirst, no polydipsia, no polyuria Hematologic/Lymphatic: no easy bruising, no easy bleeding, no lymphadenopathy, no lymphedema Allergic/Immunologic: no allergic rhinitis, no wheezing, no anaphylaxis, no angioedema Exam - Constitutional Vitals: Temp Pulse Resp BP Pulse Ox 97.8 F 104 H 20 140/61 95 02/01/19 08:25 02/01/19 16:30 02/01/19 16:30 02/01/19 16:30 02/01/19 16:30 General appearance: Present: mild distress, obese - EENT Eyes: Present: PERRL ENT: hearing intact, clear oral mucosa - Neck Neck: Present: supple, normal ROM - Respiratory Respiratory effort: normal Respiratory: bilateral: diminished, rhonchi - Cardiovascular Heart Sounds: Present: S1 & S2. Absent: rub, click - Extremities Extremities: pulses symmetrical, No edema Peripheral Pulses: within normal limits - Abdominal General gastrointestinal: Present: soft, non-tender, non-distended, normal bowel sounds Female genitourinary: Present: normal - Integumentary Integumentary: Present: clear, warm, dry - Musculoskeletal Musculoskeletal: gait normal, strength equal bilaterally - Psychiatric Psychiatric: appropriate mood/affect, intact judgment & insight - Neurologic Neurologic: CNII-XII intact, moves all extremities Results - Labs CBC & Chem 7: 02/01/19 20:14 Labs: Abnormal lab results 02/01/19 02/01/19 02/01/19 Range/Units 08:32 15:34 17:28 POC Glucose 141 H 249 H 196 H (70-105) Assessment and Plan - Patient Problems (1) Respiratory failure Current Visit: Yes Status: Acute Qualifiers: Chronicity: acute Respiratory failure complication: hypoxia Qualified Code(s): J96.01 - Acute respiratory failure with hypoxia Plan to address problem: Admit to ICU, ABG, Pulmonary team consulted in ED, supplemental oxygen, nebulizer therapy, NIPPV, repeat ABG after 1 hour on NIPPV, pulmonary toilet, Chest X ray, CTA chest, pulse oximetry. The high probability of a clinically significant, sudden or life threatening deterioration of the [Pulmonary, neuro] system(s) required my full and direct attention, intervention and personal management. The aggregate critical care time was [65] minutes. This time is in addition to time spent performing reported procedures but includes the following: [x] Data Review and interpretation [x] Patient assessment and monitoring of vital signs [x] Documentation [x] Medication orders and management (2) COPD with exacerbation Current Visit: Yes Status: Acute Plan to address problem: Supplemental oxygen, nebulizer therapy, IV steroid therapy, pulse oximetry, chest x ray (3) HTN (hypertension) Current Visit: Yes Status: Acute Qualifiers: Hypertension type: essential hypertension Qualified Code(s): I10 - Essential (primary) hypertension Plan to address problem: monitor bp q shift, supportive care, continue medical management. (4) Breast cancer Current Visit: Yes Status: Acute Qualifiers: Laterality: left Plan to address problem: S/P mastectomy, [facility] [facility] Surgery team consulted, (5) Obesity hypoventilation syndrome Current Visit: Yes Status: Acute Plan to address problem: supplemental oxygen, NIPPV, balanced diet, increased physical activity at dis charge. (6) DVT prophylaxis Current Visit: Yes Status: Acute Plan to address problem: SCD to BLE while in bed, prophylactic lovenox
[2019-02-01] MEDS ORDERED: SOLU-Medrol IV ONE (17:52)
[2019-02-01] MEDS: HumuLIN R SUB-Q SCH (19:35)
[2019-02-01] MEDS ORDERED: ZITHROMAX 500 MG in NACL 0.9% 250ML 250 ML IV SCH (20:00)
--- NOTE | 2019-02-01 20:07 | XRay Report ---
CHEST 1 VIEW INDICATION: dypsnea. COMPARISON: Earlier the same day. FINDINGS: Support devices: Chest port unchanged. Heart: Stable mild cardiomegaly. A fat pad is seen at the right cardiophrenic angle. Lungs/Pleura: Mild vascular congestion remains. Negative for localized infiltrate. Additional findings: None. IMPRESSION: Stable mild vascular congestion. Signer Name: Medardo Metcalf MD Signed: 02/01/2019 8:03 PM Workstation Name: [id number]
[2019-02-01 20:21] LABS: Basophils % (Auto) 0.2 % (0.0-1.8); Eosinophils % (Auto) 0.1 % (0.0-4.3); Hematocrit 27.2 % (30.3-42.9); Hemoglobin 8.7 gm/dl (10.1-14.3); Lymphocytes # (Auto) 0.4 K/mm3 (1.2-5.4); Lymphocytes % (Auto) 3.5 % (13.4-35.0); Mean Corpuscular HGB Conc 32 % (30-34); Mean Corpuscular Volume 98 fl (79-97); Monocytes # (Auto) 0.9 K/mm3 (0.0-0.8); Monocytes % (Auto) 8.8 % (0.0-7.3); Platelet Count 181 K/mm3 (140-440); Red Blood Count 2.77 M/mm3 (3.65-5.03)
[2019-02-01] MEDS: BROVANA NEBU IH SCH (20:21)
[2019-02-01] MEDS: PULMICORT IH SCH (20:21)
[2019-02-01 20:29] LABS: Red Cell Distribution Width 22.4 % (13.2-15.2)
[2019-02-01 20:44] LABS: Albumin 3.6 g/dL (3.9-5); Calcium 8.6 mg/dL (8.4-10.2)
[2019-02-01] MEDS: COLACE PO SCH (21:16)
[2019-02-01] MEDS: SOLU-Medrol IV SCH (21:16)
[2019-02-01] MEDS: SODIUM CHLORIDE FLUSH SYRINGE 10 ML IV SCH (21:16)
[2019-02-01] MEDS: LOVENOX SUB-Q SCH (21:18)
[2019-02-01] MEDS ORDERED: NON-FORMULARY (Mometasone/Formoterol [Dulera 100 Mcg/5 Mcg Inhaler] 2 PUFF) IH SCH (22:00)
[2019-02-02] MEDS: HumuLIN R SUB-Q SCH ×3 (00:18→12:00)
--- NOTE | 2019-02-02 03:09 | XRay Report ---
CHEST 1 VIEW INDICATION / CLINICAL INFORMATION: dypsnea. COMPARISON: 02/01/2019 FINDINGS: SUPPORT DEVICES: Port-A-Cath remains in place on the left. HEART / MEDIASTINUM: No significant abnormality. LUNGS / PLEURA: No significant pulmonary or pleural abnormality. No pneumothorax. ADDITIONAL FINDINGS: There has been left axillary node dissection and surgical drain is seen over the left lateral breast. IMPRESSION: 1. No significant change Signer Name: Jesus Winchester MD Signed: 02/02/2019 3:05 AM Workstation Name: [id number]
--- NOTE | 2019-02-02 07:31 | Progress Note ---
Assessment and Plan This is a 58 year old lady with Stage II left breast cancer of the upper outer quadrant-axillary tail, POD# 1 left partial mastectomy with ALND. 1. Patient admitted overnight to ICU team given respiratory distresss, patient known COPD and on BiPap at home. Patient with significant improvement and last ABG with good oxygenation. On 50% BiPap this am with 98% sat. 2. Left breast incision healing well, inc c/d/i; VARGAS drain to bulb suction. 3. OOB today. 4. Appreciate ICU team care and will transfer back to breast service once d/c from ICU going to the floor. 5. PO once cleared from pulmonary standpoint. Subjective Date of service: 02/02/19 Principal diagnosis: Stage II left breast cancer of the upper outer quadrant Interval history: POD#1 left partial mastectomy with ALND. Patient admitted to ICU given respiratory distress-significant improvement on BiPap overnight and this morning. Objective - Constitutional Vitals: Vital Signs - 12hr 02/01/19 02/01/19 02/01/19 19:30 19:41 19:51 Temperature Pulse Rate 97 H 124 H 110 H Pulse Rate [ Anterior Bilateral Throughout] Pulse Rate [ From Monitor] Respiratory 30 H 33 H 28 H Rate Respiratory Rate [Anterior Bilateral Throughout] Blood Pressure 126/64 126/64 126/64 O2 Sat by Pulse 100 67 L 100 Oximetry 02/01/19 02/01/19 02/01/19 20:00 20:01 20:11 Temperature 99.1 F Pulse Rate 112 H 114 H Pulse Rate [ Anterior Bilateral Throughout] Pulse Rate [ 106 H From Monitor] Respiratory 33 H 24 29 H Rate Respiratory Rate [Anterior Bilateral Throughout] Blood Pressure 126/64 146/129 O2 Sat by Pulse 100 100 99 Oximetry 02/01/19 02/01/19 02/01/19 20:21 20:22 20:31 Temperature Pulse Rate 108 H 106 H Pulse Rate [ 106 H Anterior Bilateral Throughout] Pulse Rate [ From Monitor] Respiratory 30 H 27 H Rate Respiratory 27 H Rate [Anterior Bilateral Throughout] Blood Pressure 153/65 134/59 O2 Sat by Pulse 99 100 Oximetry 02/01/19 02/01/19 02/01/19 20:41 20:51 21:01 Temperature Pulse Rate 107 H 107 H 105 H Pulse Rate [ Anterior Bilateral Throughout] Pulse Rate [ From Monitor] Respiratory 23 22 19 Rate Respiratory Rate [Anterior Bilateral Throughout] Blood Pressure 134/59 134/59 114/58 O2 Sat by Pulse 100 100 100 Oximetry 02/01/19 02/01/19 02/01/19 21:11 21:21 21:31 Temperature Pulse Rate 106 H 104 H 106 H Pulse Rate [ Anterior Bilateral Throughout] Pulse Rate [ From Monitor] Respiratory 13 27 H 24 Rate Respiratory Rate [Anterior Bilateral Throughout] Blood Pressure 114/58 114/58 114/44 O2 Sat by Pulse 99 98 98 Oximetry 02/01/19 02/01/19 02/01/19 21:41 21:51 22:01 Temperature Pulse Rate 106 H 102 H 102 H Pulse Rate [ Anterior Bilateral Throughout] Pulse Rate [ From Monitor] Respiratory 16 26 H 29 H Rate Respiratory Rate [Anterior Bilateral Throughout] Blood Pressure 114/44 114/44 101/42 O2 Sat by Pulse 97 98 98 Oximetry 02/01/19 02/01/19 02/01/19 22:11 22:21 22:31 Temperature Pulse Rate 98 H 99 H 99 H Pulse Rate [ Anterior Bilateral Throughout] Pulse Rate [ From Monitor] Respiratory 28 H 28 H 28 H Rate Respiratory Rate [Anterior Bilateral Throughout] Blood Pressure 101/42 101/42 102/38 O2 Sat by Pulse 98 98 98 Oximetry 02/01/19 02/01/19 02/01/19 22:41 22:51 23:00 Temperature Pulse Rate 96 H 95 H 93 H Pulse Rate [ Anterior Bilateral Throughout] Pulse Rate [ From Monitor] Respiratory 27 H 26 H 19 Rate Respiratory Rate [Anterior Bilateral Throughout] Blood Pressure 102/38 102/38 103/54 O2 Sat by Pulse 98 99 98 Oximetry 02/01/19 02/01/19 02/01/19 23:09 23:11 23:21 Temperature Pulse Rate 92 H 92 H 90 Pulse Rate [ Anterior Bilateral Throughout] Pulse Rate [ From Monitor] Respiratory 25 H 26 H 25 H Rate Respiratory Rate [Anterior Bilateral Throughout] Blood Pressure 103/54 103/54 103/54 O2 Sat by Pulse 96 96 98 Oximetry 02/01/19 02/01/19 02/01/19 23:30 23:41 23:51 Temperature Pulse Rate 91 H 90 90 Pulse Rate [ Anterior Bilateral Throughout] Pulse Rate [ From Monitor] Respiratory 23 24 25 H Rate Respiratory Rate [Anterior Bilateral Throughout] Blood Pressure 109/54 109/54 109/54 O2 Sat by Pulse 98 98 98 Oximetry 02/02/19 02/02/19 02/02/19 00:00 00:11 00:21 Temperature 97.9 F Pulse Rate 90 89 88 Pulse Rate [ Anterior Bilateral Throughout] Pulse Rate [ 106 H From Monitor] Respiratory 25 H 24 23 Rate Respiratory Rate [Anterior Bilateral Throughout] Blood Pressure 103/55 103/55 109/54 O2 Sat by Pulse 98 98 98 Oximetry 02/02/19 02/02/19 02/02/19 00:31 00:41 00:51 Temperature Pulse Rate 90 84 88 Pulse Rate [ Anterior Bilateral Throughout] Pulse Rate [ From Monitor] Respiratory 23 22 24 Rate Respiratory Rate [Anterior Bilateral Throughout] Blood Pressure 105/53 105/53 103/55 O2 Sat by Pulse 98 98 99 Oximetry 02/02/19 02/02/19 02/02/19 01:00 01:11 01:21 Temperature Pulse Rate 86 87 85 Pulse Rate [ Anterior Bilateral Throughout] Pulse Rate [ From Monitor] Respiratory 23 24 22 Rate Respiratory Rate [Anterior Bilateral Throughout] Blood Pressure 100/50 100/50 105/53 O2 Sat by Pulse 99 99 99 Oximetry 02/02/19 02/02/19 02/02/19 01:30 01:41 01:51 Temperature Pulse Rate 93 H 81 84 Pulse Rate [ Anterior Bilateral Throughout] Pulse Rate [ From Monitor] Respiratory 23 22 23 Rate Respiratory Rate [Anterior Bilateral Throughout] Blood Pressure 98/52 98/52 100/50 O2 Sat by Pulse 99 99 99 Oximetry 02/02/19 02/02/19 02/02/19 02:00 02:11 02:21 Temperature Pulse Rate 82 86 79 Pulse Rate [ Anterior Bilateral Throughout] Pulse Rate [ From Monitor] Respiratory 22 24 19 Rate Respiratory Rate [Anterior Bilateral Throughout] Blood Pressure 98/53 98/53 98/53 O2 Sat by Pulse 100 100 100 Oximetry 02/02/19 02/02/19 02/02/19 02:30 02:41 02:51 Temperature Pulse Rate 86 90 84 Pulse Rate [ Anterior Bilateral Throughout] Pulse Rate [ From Monitor] Respiratory 21 16 22 Rate Respiratory Rate [Anterior Bilateral Throughout] Blood Pressure 107/56 107/56 107/56 O2 Sat by Pulse 99 100 99 Oximetry 02/02/19 02/02/19 02/02/19 03:01 03:11 03:21 Temperature Pulse Rate 87 90 90 Pulse Rate [ Anterior Bilateral Throughout] Pulse Rate [ From Monitor] Respiratory 22 21 21 Rate Respiratory Rate [Anterior Bilateral Throughout] Blood Pressure 96/36 96/36 96/36 O2 Sat by Pulse 99 99 99 Oximetry 02/02/19 02/02/19 02/02/19 03:31 03:41 03:51 Temperature Pulse Rate 85 93 H 86 Pulse Rate [ Anterior Bilateral Throughout] Pulse Rate [ From Monitor] Respiratory 21 24 22 Rate Respiratory Rate [Anterior Bilateral Throughout] Blood Pressure 103/32 103/32 96/36 O2 Sat by Pulse 99 99 99 Oximetry 02/02/19 02/02/19 02/02/19 04:00 04:01 04:11 Temperature Pulse Rate 91 H 87 Pulse Rate [ Anterior Bilateral Throughout] Pulse Rate [ 86 From Monitor] Respiratory 17 21 21 Rate Respiratory Rate [Anterior Bilateral Throughout] Blood Pressure 70/21 70/21 O2 Sat by Pulse 100 99 99 Oximetry 02/02/19 02/02/19 02/02/19 04:21 04:31 04:41 Temperature Pulse Rate 87 85 86 Pulse Rate [ Anterior Bilateral Throughout] Pulse Rate [ From Monitor] Respiratory 23 22 22 Rate Respiratory Rate [Anterior Bilateral Throughout] Blood Pressure 70/21 70/21 109/43 O2 Sat by Pulse 100 98 99 Oximetry 02/02/19 02/02/19 02/02/19 04:51 05:01 05:11 Temperature Pulse Rate 84 80 83 Pulse Rate [ Anterior Bilateral Throughout] Pulse Rate [ From Monitor] Respiratory 21 21 22 Rate Respiratory Rate [Anterior Bilateral Throughout] Blood Pressure 109/43 102/46 102/46 O2 Sat by Pulse 100 100 100 Oximetry 02/02/19 02/02/19 02/02/19 05:21 05:31 05:41 Temperature Pulse Rate 81 78 86 Pulse Rate [ Anterior Bilateral Throughout] Pulse Rate [ From Monitor] Respiratory 23 20 21 Rate Respiratory Rate [Anterior Bilateral Throughout] Blood Pressure 102/46 96/42 96/42 O2 Sat by Pulse 99 100 100 Oximetry 02/02/19 05:51 Temperature Pulse Rate 84 Pulse Rate [ Anterior Bilateral Throughout] Pulse Rate [ From Monitor] Respiratory 22 Rate Respiratory Rate [Anterior Bilateral Throughout] Blood Pressure 96/42 O2 Sat by Pulse 100 Oximetry General appearance: Present: no acute distress - EENT Eyes: PERRL, EOM intact ENT: hearing intact, clear oral mucosa Ears: bilateral: normal - Neck Neck: supple, normal ROM - Respiratory Respiratory effort: normal - Breasts Breasts: other (left breast incision healing well-axillary tail; VARGAS drains to bulb suction) - Cardiovascular Rhythm: regular Extremities: no ischemia, pulses intact, pulses symmetrical, No edema, normal temperature, normal color, Full ROM - Gastrointestinal General gastrointestinal: Present: soft, non-tender, non-distended Rectal Exam: deferred - Genitourinary Female genitourinary: deferred - Integumentary Integumentary: clear, warm, dry - Musculoskeletal Musculoskeletal: strength equal bilaterally - Neurologic Neurologic: CNII-XII intact, moves all extremities - Psychiatric Psychiatric: appropriate mood/affect, intact judgment & insight, memory intact, cooperative - Labs CBC & Chem 7: 02/01/19 20:14 02/01/19 20:14 Labs: Abnormal lab results 02/01/19 02/01/19 02/01/19 Range/Units 08:32 15:34 17:28 RBC (3.65-5.03) M/mm3 Hgb (10.1-14.3) gm/dl Hct (30.3-42.9) % MCV (79-97) fl RDW (13.2-15.2) % Lymph % (Auto) (13.4-35.0) % [place] % (Auto) (0.0-7.3) % Lymph # (1.2-5.4) K/mm3 [place] # (0.0-0.8) K/mm3 Seg Neutrophils % (40.0-70.0) % Seg Neutrophils # (1.8-7.7) K/mm3 POC ABG pH (7.35-7.45) POC ABG pCO2 (35-45) POC ABG pO2 (80-105) BUN (7-17) mg/dL Glucose (65-100) mg/dL POC Glucose 141 H 249 H 196 H (70-105) Total Protein (6.3-8.2) g/dL Albumin (3.9-5) g/dL 02/01/19 02/01/19 02/01/19 Range/Units 18:42 19:02 20:14 RBC 2.77 L (3.65-5.03) M/mm3 Hgb 8.7 L (10.1-14.3) gm/dl Hct 27.2 L (30.3-42.9) % MCV 98 H (79-97) fl RDW 22.4 H (13.2-15.2) % Lymph % (Auto) 3.5 L (13.4-35.0) % [place] % (Auto) 8.8 H (0.0-7.3) % Lymph # 0.4 L (1.2-5.4) K/mm3 [place] # 0.9 H (0.0-0.8) K/mm3 Seg Neutrophils % 87.4 H (40.0-70.0) % Seg Neutrophils # 8.9 H (1.8-7.7) K/mm3 POC ABG pH 7.307 L (7.35-7.45) POC ABG pCO2 50.8 H (35-45) POC ABG pO2 63 L (80-105) BUN (7-17) mg/dL Glucose (65-100) mg/dL POC Glucose 185 H (70-105) Total Protein (6.3-8.2) g/dL Albumin (3.9-5) g/dL 02/01/19 02/01/19 02/02/19 Range/Units 20:14 21:07 00:23 RBC (3.65-5.03) M/mm3 Hgb (10.1-14.3) gm/dl Hct (30.3-42.9) % MCV (79-97) fl RDW (13.2-15.2) % Lymph % (Auto) (13.4-35.0) % [place] % (Auto) (0.0-7.3) % Lymph # (1.2-5.4) K/mm3 [place] # (0.0-0.8) K/mm3 Seg Neutrophils % (40.0-70.0) % Seg Neutrophils # (1.8-7.7) K/mm3 POC ABG pH 7.534 H (7.35-7.45) POC ABG pCO2 (35-45) POC ABG pO2 148 H (80-105) BUN 19 H (7-17) mg/dL Glucose 198 H (65-100) mg/dL POC Glucose 239 H (70-105) Total Protein 6.1 L (6.3-8.2) g/dL Albumin 3.6 L (3.9-5) g/dL 02/02/19 Range/Units 06:41 RBC (3.65-5.03) M/mm3 Hgb (10.1-14.3) gm/dl Hct (30.3-42.9) % MCV (79-97) fl RDW (13.2-15.2) % Lymph % (Auto) (13.4-35.0) % [place] % (Auto) (0.0-7.3) % Lymph # (1.2-5.4) K/mm3 [place] # (0.0-0.8) K/mm3 Seg Neutrophils % (40.0-70.0) % Seg Neutrophils # (1.8-7.7) K/mm3 POC ABG pH (7.35-7.45) POC ABG pCO2 (35-45) POC ABG pO2 (80-105) BUN (7-17) mg/dL Glucose (65-100) mg/dL POC Glucose 262 H (70-105) Total Protein (6.3-8.2) g/dL Albumin (3.9-5) g/dL Medications & Allergies - Medications Allergies/Adverse Reactions: Allergies Penicillins Adverse Reaction (Verified 09/27/18 12:30) "PASSED OUT" Home Medications: Home Medications Medication Instructions Recorded Confirmed Last Taken Type Albuterol Sulfate [Albuterol 0.63% 0.63 mg IH TID PRN 11/29/17 01/30/19 08/29/18 21:00 History NEBS] Atorvastatin Calcium [Lipitor] 80 mg PO DAILY 11/29/17 01/30/19 08/29/18 21:00 History Insulin Glargine,Hum.rec.anlog 40 units SQ QHS 11/29/17 01/30/19 08/29/18 21:00 History [Lantus] Insulin Lispro [HumaLOG VIAL] 2 units SQ AC 11/29/17 01/30/19 08/29/18 09:00 History Lisinopril [Zestril TAB] 20 mg PO QDAY 11/29/17 01/30/19 08/29/18 09:00 History Metformin HCl [Glucophage] 1,000 mg PO BID 11/29/17 01/30/19 08/29/18 21:00 History Mometasone/Formoterol [Dulera 100 2 puff IH BID 11/29/17 01/30/19 09/28/18 21:00 History Mcg/5 Mcg Inhaler] Montelukast [Singulair] 10 mg PO QPM 11/29/17 01/30/19 09/29/18 06:00 History Tiotropium [Spiriva] 18 mcg IH QDAY 11/29/17 01/30/19 09/28/18 09:00 History methOCARBAMOL [Robaxin TAB] 750 mg PO Q4H PRN 11/29/17 01/30/19 09/28/18 21:00 History Venlafaxine HCl [Venlafaxin ER] 75 mg PO QDAY 08/26/18 01/30/19 09/29/18 06:00 History Albuterol Sulfate [Proventil Hfa] 6.7 gm IH TID PRN 08/29/18 01/30/19 08/29/18 21:00 History Aspirin EC 325 mg PO QDAY 08/29/18 01/30/19 08/23/18 History amLODIPine [Norvasc] 10 mg PO DAILY 08/29/18 01/30/19 09/28/18 06:00 History Ibuprofen [Ibuprofen 800] 800 mg PO TID PRN #30 tablet 08/30/18 01/30/19 Unknown Rx LORazepam [Ativan] 1 mg PO TID PRN 09/27/18 01/30/19 09/29/18 06:00 History HYDROcodone/APAP 5-325 [[place] 1 each PO Q6HR PRN #20 tablet 09/29/18 01/30/19 Unknown Rx 5/325] Bupropion HBr 150 mg PO DAILY 01/20/19 01/30/19 Unknown History Furosemide [Lasix TAB] 20 mg PO DAILY PRN 01/20/19 01/30/19 Unknown History Magnesium 400 mg PO TID 01/20/19 01/30/19 Unknown History Active Medications: Generic Name Dose Route Start Last Admin Trade Name Freq PRN Reason Stop Dose Admin Acetaminophen 650 mg 02/01/19 14:56 Tylenol PO Q6H PRN Pain MILD(1-3)/Fever >100.5/SINGER Albuterol 2.5 mg 02/01/19 15:34 Proventil IH TIDRT PRN Wheezing Albuterol 2.5 mg 02/01/19 17:47 Proventil IH Q3HRT PRN Shortness Of Breath Arformoterol Tartrate 15 mcg 02/01/19 20:00 02/01/19 20:21 Brorayray Nebu IH 15 mcg Q12HRT [facility] Administration Budesonide 0.5 mg 02/01/19 20:00 02/01/19 20:21 Pulmicort IH 0.5 mg Q12HRT [facility] Administration Dextrose 50 ml 02/01/19 20:38 D50w (25gm) Syringe IV PRN PRN Hypoglycemia Diphenhydramine HCl 25 mg 02/01/19 14:56 Benadryl PO Q8H PRN Itching Docusate Sodium 100 mg 02/01/19 22:00 02/01/19 21:16 Colace PO Not Given BID [facility] Enoxaparin Sodium 40 mg 02/01/19 22:00 02/01/19 21:18 Lovenox SUB-Q 40 mg QDAY@2200 [facility] Administration Azithromycin 500 mg/ Sodium 250 mls @ 250 mls/hr 02/01/19 20:00 02/01/19 19:34 Chloride IV 250 mls/hr Q24H [facility] Administration Protocol Insulin Human Regular 0 units 02/01/19 18:00 02/02/19 06:41 Humulin R SUB-Q 4 units Q6HR [facility] Administration Protocol Methylprednisolone Sodium Succinate 40 mg 02/01/19 22:00 02/01/19 21:16 Solu-Medrol IV 40 mg Q12HR [facility] Administration Metoclopramide HCl 10 mg 02/01/19 14:56 Reglan PO Q6H PRN Nausea And Vomiting Morphine Sulfate 2 mg 02/01/19 14:58 Morphine IV Q4H PRN Pain, Moderate (4-6) Ondansetron HCl 4 mg 02/01/19 14:56 Zofran IV Q8H PRN N/V unrelieved by Reglan Oxycodone/Acetaminophen 1 tab 02/01/19 14:56 Percocet 5/325 PO Q6H PRN Pain, Moderate (4-6) Sodium Chloride 10 ml 02/01/19 14:56 Sodium Chloride Flush Syringe 10 Ml IV PRN PRN LINE FLUSH Sodium Chloride 10 ml 02/01/19 22:00 02/01/19 21:16 Sodium Chloride Flush Syringe 10 Ml IV 10 ml BID [facility] Administration Sodium Chloride 10 ml 02/01/19 17:47 Sodium Chloride Flush Syringe 10 Ml IV PRN PRN LINE FLUSH Tiotropium [place] 1 puff 02/02/19 10:00 Spiriva IH QDAY [facility]
[2019-02-02] MEDS: PULMICORT IH SCH ×2 (09:47→20:43)
[2019-02-02] MEDS: BROVANA NEBU IH SCH ×2 (09:47→20:43)
[2019-02-02] MEDS: COLACE PO SCH ×2 (10:00→22:58)
[2019-02-02] MEDS: SOLU-Medrol IV SCH (10:00)
[2019-02-02] MEDS: SODIUM CHLORIDE FLUSH SYRINGE 10 ML IV SCH ×2 (10:00→23:16)
--- NOTE | 2019-02-02 12:00 | Cat Scan Report ---
CTA CHEST WITH CONTRAST INDICATION : Dyspnea for 2 days. TECHNIQUE: Axial imaging performed through the chest, with contrast bolus timing set to maximize opa cification of the pulmonary arteries. Sagittal and coronal reformatted images. 3-plane MIP reformatte d images were obtained. All CT scans at this location are performed using CT dose reduction for ALAR A by means of automated exposure control. 100 mL of intravenous contrast administered. COMPARISON: None FINDINGS: Bolus: Contrast bolus timing is adequate. PTE: No filling defect is present to suggest PTE. Mediastinum: Heart and great vessels appear normal. No pathologic mediastinal adenopathy. Lungs: Moderate patchy infiltrate in the right lower lobe. Minor segmental atelectasis is identified in the lingula. The remainder of the lungs are clear. No pleural effusion or pneumothorax. Bones: Degenerative changes in the spine with nothing acute. Upper abdomen: Limited imaging of the upper abdomen shows nothing acute. IMPRESSION: No evidence for pulmonary embolus. Right lower lobe pneumonia. Signer Name: Juice Gavin Jr, MD Signed: 02/02/2019 11:55 AM Workstation Name: [id number]
[2019-02-02] MEDS: SPIRIVA IH SCH (13:06)
--- NOTE | 2019-02-02 13:41 | Consultation ---
History of Present Illness Consult date: 02/02/19 Requesting physician: FINN HER Reason for consult: other (Acute Hypoxemic Respiratory Failure; [place]; s/p Mastectomy) History of present illness: PULMONARY/CCM CONSULT NOTE (Full dictation # [id number]) Please see dictated notes for full details Past History Past Medical History: cancer, COPD, hypertension, other (Anxiety, [place], Obesity Hypoventilation) Past Surgical History: mastectomy Social history: . denies: smoking, alcohol abuse, prescription drug abuse Family history: diabetes, other (RA) Medications and Allergies Allergies Allergy/AdvReac Type Severity Reaction Status Date / Time Penicillins AdvReac "PASSED Verified 09/27/18 12:30 OUT" Home Medications Medication Instructions Recorded Confirmed Last Taken Type Albuterol Sulfate [Albuterol 0.63% 0.63 mg IH TID PRN 11/29/17 01/30/19 08/29/18 21:00 History NEBS] Atorvastatin Calcium [Lipitor] 80 mg PO DAILY 11/29/17 01/30/19 08/29/18 21:00 History Insulin Glargine,Hum.rec.anlog 40 units SQ QHS 11/29/17 01/30/19 08/29/18 21:00 History [Lantus] Insulin Lispro [HumaLOG VIAL] 2 units SQ AC 11/29/17 01/30/19 08/29/18 09:00 History Lisinopril [Zestril TAB] 20 mg PO QDAY 11/29/17 01/30/19 08/29/18 09:00 History Metformin HCl [Glucophage] 1,000 mg PO BID 11/29/17 01/30/19 08/29/18 21:00 H istory Mometasone/Formoterol [Dulera 100 2 puff IH BID 11/29/17 01/30/19 09/28/18 21:00 History Mcg/5 Mcg Inhaler] Montelukast [Singulair] 10 mg PO QPM 11/29/17 01/30/19 09/29/18 06:00 History Tiotropium [Spiriva] 18 mcg IH QDAY 11/29/17 01/30/19 09/28/18 09:00 History methOCARBAMOL [Robaxin TAB] 750 mg PO Q4H PRN 0601/30/19 09/28/18 21:00 History Venlafaxine HCl [Venlafaxin ER] 75 mg PO QDAY 08/26/18 01/30/19 09/29/18 06:00 History Albuterol Sulfate [Proventil Hfa] 6.7 gm IH TID PRN 08/29/18 01/30/19 08/29/18 21:00 History Aspirin EC 325 mg PO QDAY 08/29/18 01/30/19 08/23/18 History amLODIPine [Norvasc] 10 mg PO DAILY 08/29/18 01/30/19 09/28/18 06:00 History Ibuprofen [Ibuprofen 800] 800 mg PO TID PRN #30 tablet 08/30/18 01/30/19 Unknown Rx LORazepam [Ativan] 1 mg PO TID PRN 09/27/18 01/30/19 09/29/18 06:00 History HYDROcodone/APAP 5-325 [[place] 1 each PO Q6HR PRN #20 tablet 09/29/18 01/30/19 Unknown Rx 5/325] Bupropion HBr 150 mg PO DAILY 01/20/19 01/30/19 Unknown History Furosemide [Lasix TAB] 20 mg PO DAILY PRN 01/20/19 01/30/19 Unknown History Magnesium 400 mg PO TID 01/20/19 01/30/19 Unknown History Active Meds: Active Medications Acetaminophen (Tylenol) 650 mg PO Q6H PRN PRN Reason: Pain MILD(1-3)/Fever >100.5/SINGER Albuterol (Proventil) 2.5 mg IH TIDRT PRN PRN Reason: Wheezing Albuterol (Proventil) 2.5 mg IH Q3HRT PRN PRN Reason: Shortness Of Breath Arformoterol Tartrate (Brovana Nebu) 15 mcg IH Q12HRT [facility] Last Admin: 02/02/19 09:47 Dose: 15 mcg Documented by: Budesonide (Pulmicort) 0.5 mg IH Q12HRT [facility] Last Admin: 02/02/19 09:47 Dose: 0.5 mg Documented by: Dextrose (D50w (25gm) Syringe) 50 ml IV PRN PRN PRN Reason: Hypoglycemia Diphenhydramine HCl (Benadryl) 25 mg PO Q8H PRN PRN Reason: Itching Docusate Sodium (Colace) 100 mg PO BID [facility] Last Admin: 02/02/19 10:00 Dose: 100 mg Documented by: Enoxaparin Sodium (Lovenox) 40 mg SUB-Q QDAY@2200 [facility] Last Admin: 02/01/19 21:18 Dose: 40 mg Documented by: Azithromycin 500 mg/ Sodium (Chloride) 250 mls @ 250 mls/hr IV Q24H [facility]; Protocol Last Infusion: 02/01/19 20:35 Dose: Infused Documented by: Insulin Human Regular (Humulin R) 0 units SUB-Q Q6HR [facility]; Protocol Last Admin: 02/02/19 06:41 Dose: 4 units Documented by: Methylprednisolone Sodium Succinate (Solu-Medrol) 40 mg IV Q12HR [facility] Last Admin: 02/02/19 10:00 Dose: 40 mg Documented by: Metoclopramide HCl (Reglan) 10 mg PO Q6H PRN PRN Reason: Nausea And Vomiting Morphine Sulfate (Morphine) 2 mg IV Q4H PRN PRN Reason: Pain, Moderate (4-6) Ondansetron HCl (Zofran) 4 mg IV Q8H PRN PRN Reason: N/V unrelieved by Reglan Oxycodone/Acetaminophen (Percocet 5/325) 1 tab PO Q6H PRN PRN Reason: Pain, Moderate (4-6) Sodium Chloride (Sodium Chloride Flush Syringe 10 Ml) 10 ml IV PRN PRN PRN Reason: LINE FLUSH Sodium Chloride (Sodium Chloride Flush Syringe 10 Ml) 10 ml IV BID [facility] Last Admin: 02/02/19 10:00 Dose: 10 ml Documented by: Tiotropium [place] (Spiriva) 1 puff IH QDAY [facility] Last Admin: 02/02/19 13:06 Dose: Not Given Documented by: Physical Examination Vital signs: Vital Signs Temp Pulse Resp BP Pulse Ox 97.1 F L 95 H 20 138/48 93 01/30/19 13:25 01/30/19 13:25 01/30/19 13:25 01/30/19 13:25 01/30/19 13:25 Results - Laboratory Findings CBC and BMP: 02/01/19 20:14 02/01/19 20:14 ABG POC ABG pH 7.534 (7.35-7.45) H 02/01/19 21:07 POC ABG pCO2 37.2 (35-45) 02/01/19 21:07 POC ABG pO2 148 (80-105) H 02/01/19 21:07 POC ABG HCO3 31.4 (22-26 mml/L) 02/01/19 21:07 POC ABG Total CO2 32 (23-27mmol/L) 02/01/19 21:07 POC ABG O2 Sat 100 02/01/19 21:07 Abnormal lab findings: Abnormal Labs 02/01/19 02/01/19 02/01/19 08:32 15:34 17:28 RBC Hgb Hct MCV RDW Lymph % (Auto) [place] % (Auto) Lymph # [place] # Seg Neutrophils % Seg Neutrophils # POC ABG pH POC ABG pCO2 POC ABG pO2 BUN Glucose POC Glucose 141 H 249 H 196 H Total Protein Albumin 02/01/19 02/01/19 02/01/19 18:42 19:02 20:14 RBC 2.77 L Hgb 8.7 L Hct 27.2 L MCV 98 H RDW 22.4 H Lymph % (Auto) 3.5 L [place] % (Auto) 8.8 H Lymph # 0.4 L [place] # 0.9 H Seg Neutrophils % 87.4 H Seg Neutrophils # 8.9 H POC ABG pH 7.307 L POC ABG pCO2 50.8 H POC ABG pO2 63 L BUN Glucose POC Glucose 185 H Total Protein Albumin 02/01/19 02/01/19 02/02/19 20:14 21:07 00:23 RBC Hgb Hct MCV RDW Lymph % (Auto) [place] % (Auto) Lymph # [place] # Seg Neutrophils % Seg Neutrophils # POC ABG pH 7.534 H POC ABG pCO2 POC ABG pO2 148 H BUN 19 H Glucose 198 H POC Glucose 239 H Total Protein 6.1 L Albumin 3.6 L 02/02/19 02/02/19 02/02/19 06:41 10:05 12:09 RBC Hgb Hct MCV RDW Lymph % (Auto) [place] % (Auto) Lymph # [place] # Seg Neutrophils % Seg Neutrophils # POC ABG pH POC ABG pCO2 POC ABG pO2 BUN Glucose POC Glucose 262 H 253 H 244 H Total Protein Albumin
--- NOTE | 2019-02-02 13:52 | Progress Note ---
Assessment and Plan Assessment and plan: 58F who was sp mastectomy then developed resp failure in the post op period Respiratory failure with hypoxia continue venti mask, mgt per pulmonary COPD with exacerbation Supplemental oxygen, nebulizer therapy, tapering steroids per pulm Right lung pna, likely due to aspiration abx HTN (hypertension) monitor bp q shift, supportive care, continue medical management. Breast cancer S/P mastectomy, dw Breast surgeon Obesity hypoventilation syndrome supplemental oxygen, NIPPV, balanced diet, increased physical activity at discharge. DVT prophylaxis SCD to BLE while in bed, prophylactic lovenox cct 33 mins transferred back to service of Breast surgeon, Dr Arriaga on 02/02/19 History Interval history: sob is improved denies coughing no n/v/d no fevers Hospitalist Physical - Constitutional Vitals: Temp Pulse Resp BP Pulse Ox 97.5 F L 94 H 18 124/56 99 02/02/19 12:00 02/02/19 13:01 02/02/19 13:01 02/02/19 13:01 02/02/19 13:01 General appearance: Present: no acute distress - EENT Eyes: Present: PERRL ENT: hearing intact - Neck Neck: Present: supple - Respiratory Respiratory: bilateral: diminished, wheezing - Cardiovascular Rhythm: regular Heart Sounds: Present: S1 & S2 - Extremities Extremities: no ischemia - Abdominal General gastrointestinal: soft, non-tender - Integumentary Integumentary: Present: clear, warm, dry - Psychiatric Psychiatric: appropriate mood/affect, intact judgment & insight - Neurologic Neurologic: CNII-XII intact, moves all extremities Results - Labs CBC & Chem 7: 02/01/19 20:14 02/01/19 20:14 Labs: Laboratory Last Values WBC 10.2 K/mm3 (4.5-11.0) 02/01/19 20:14 RBC 2.77 M/mm3 (3.65-5.03) L 02/01/19 20:14 Hgb 8.7 gm/dl (10.1-14.3) L 02/01/19 20:14 Hct 27.2 % (30.3-42.9) L 02/01/19 20:14 MCV 98 fl (79-97) H 02/01/19 20:14 MCH 32 pg (28-32) 02/01/19 20:14 MCHC 32 % (30-34) 02/01/19 20:14 RDW 22.4 % (13.2-15.2) H 02/01/19 20:14 Plt Count 181 K/mm3 (140-440) 02/01/19 20:14 Lymph % (Auto) 3.5 % (13.4-35.0) L 02/01/19 20:14 [place] % (Auto) 8.8 % (0.0-7.3) H 02/01/19 20:14 Eos % (Auto) 0.1 % (0.0-4.3) 02/01/19 20:14 Baso % (Auto) 0.2 % (0.0-1.8) 02/01/19 20:14 Lymph # 0.4 K/mm3 (1.2-5.4) L 02/01/19 20:14 [place] # 0.9 K/mm3 (0.0-0.8) H 02/01/19 20:14 Eos # 0.0 K/mm3 (0.0-0.4) 02/01/19 20:14 Baso # 0.0 K/mm3 (0.0-0.1) 02/01/19 20:14 Seg Neutrophils % 87.4 % (40.0-70.0) H 02/01/19 20:14 Seg Neutrophils # 8.9 K/mm3 (1.8-7.7) H 02/01/19 20:14 POC ABG pH 7.534 (7.35-7.45) H 02/01/19 21:07 POC ABG pCO2 37.2 (35-45) 02/01/19 21:07 POC ABG pO2 148 (80-105) H 02/01/19 21:07 POC ABG HCO3 31.4 (22-26 mml/L) 02/01/19 21:07 POC ABG Total CO2 32 (23-27mmol/L) 02/01/19 21:07 POC ABG O2 Sat 100 02/01/19 21:07 POC ABG Base Excess 9 ((-2) - (+3)mmol/L) 02/01/19 21:07 60 % 02/01/19 21:07 Sodium 141 mmol/L (137-145) 02/01/19 20:14 Potassium 4.9 mmol/L (3.6-5.0) 02/01/19 20:14 Chloride 100.1 mmol/L (98-107) 02/01/19 20:14 Carbon Dioxide 27 mmol/L (22-30) 02/01/19 20:14 19 mmol/L 02/01/19 20:14 BUN 19 mg/dL (7-17) H 02/01/19 20:14 1.0 mg/dL (0.7-1.2) 02/01/19 20:14 Estimated GFR 57 ml/min 02/01/19 20:14 19 % 02/01/19 20:14 Glucose 198 mg/dL (65-100) H 02/01/19 20:14 POC Glucose 244 (70-105) H 02/02/19 12:09 Calcium 8.6 mg/dL (8.4-10.2) 02/01/19 20:14 0.30 mg/dL (0.1-1.2) 02/01/19 20:14 AST 34 units/L (5-40) 02/01/19 20:14 ALT 48 units/L (7-56) 02/01/19 20:14 126 units/L (35-129) 02/01/19 20:14 6.1 g/dL (6.3-8.2) L 02/01/19 20:14 3.6 g/dL (3.9-5) L 02/01/19 20:14 1.4 % 02/01/19 20:14 Active Medications - Current Medications Current Medications: Generic Name Dose Route Start Last Admin Trade Name Freq PRN Reason Stop Dose Admin Acetaminophen 650 mg 02/01/19 14:56 Tylenol PO Q6H PRN Pain MILD(1-3)/Fever >100.5/SINGER Albuterol 2.5 mg 02/01/19 15:34 Proventil IH TIDRT PRN Wheezing Albuterol 2.5 mg 02/01/19 17:47 Proventil IH Q3HRT PRN Shortness Of Breath Arformoterol Tartrate 15 mcg 02/01/19 20:00 02/02/19 09:47 Brovana Nebu IH 15 mcg Q12HRT ISELA Administration Budesonide 0.5 mg 02/01/19 20:00 02/02/19 09:47 Pulmicort IH 0.5 mg Q12HRT ISELA Administration Dextrose 50 ml 02/01/19 20:38 D50w (25gm) Syringe IV PRN PRN Hypoglycemia Diphenhydramine HCl 25 mg 02/01/19 14:56 Benadryl PO Q8H PRN Itching Docusate Sodium 100 mg 02/01/19 22:00 02/02/19 10:00 Colace PO 100 mg BID [facility] Administration Enoxaparin Sodium 40 mg 02/01/19 22:00 02/01/19 21:18 Lovenox SUB-Q 40 mg QDAY@2200 ISELA Administration Azithromycin 500 mg/ Sodium 250 mls @ 250 mls/hr 02/01/19 20:00 02/01/19 20:35 Chloride IV Infused Q24H [facility] Infusion Protocol Insulin Human Regular 0 units 02/01/19 18:00 02/02/19 06:41 Humulin R SUB-Q 4 units Q6HR [facility] Administration Protocol Methylprednisolone Sodium Succinate 40 mg 02/01/19 22:00 02/02/19 10:00 Solu-Medrol IV 40 mg Q12HR ISELA Administration Metoclopramide HCl 10 mg 02/01/19 14:56 Reglan PO Q6H PRN Nausea And Vomiting Morphine Sulfate 2 mg 02/01/19 14:58 Morphine IV Q4H PRN Pain, Moderate (4-6) Ondansetron HCl 4 mg 02/01/19 14:56 Zofran IV Q8H PRN N/V unrelieved by Reglan Oxycodone/Acetaminophen 1 tab 02/01/19 14:56 Percocet 5/325 PO Q6H PRN Pain, Moderate (4-6) Sodium Chloride 10 ml 02/01/19 14:56 Sodium Chloride Flush Syringe 10 Ml IV PRN PRN LINE FLUSH Sodium Chloride 10 ml 02/01/19 22:00 02/02/19 10:00 Sodium Chloride Flush Syringe 10 Ml IV 10 ml BID [facility] Administration Tiotropium [place] 1 puff 02/02/19 10:00 02/02/19 13:06 Spiriva IH Not Given QDAY [facility]
[2019-02-02] MEDS ORDERED: LEVAQUIN 750MG/150ML 750 MG/150 ML BAG IV SCH (14:00)
[2019-02-02] MEDS ORDERED: NORCO 5/325 PO PRN (14:12)
[2019-02-02] MEDS ORDERED: LASIX PO PRN (14:12)
[2019-02-02] MEDS ORDERED: HumaLOG SUB-Q SCH (16:30)
[2019-02-02] MEDS: HumaLOG SUB-Q SCH ×2 (16:30→23:08)
[2019-02-02] MEDS ORDERED: LANTUS SUB-Q SCH (22:00)
[2019-02-02] MEDS: LOVENOX SUB-Q SCH (22:59)
--- NOTE | 2019-02-03 01:07 | Consultation ---
PULMONARY CRITICAL CARE CONSULT NOTE CONSULTING PHYSICIAN: Dr. Arriaga and Dr. Caban REASON FOR CONSULTATION: 1. Acute hypoxemic respiratory failure. 2. Obstructive sleep apnea/obesity-hypoventilation syndrome. 3. Morbid obesity. 4. History of asthma/chronic obstructive pulmonary disease. 5. Status post mastectomy. CHIEF COMPLAINT AND HISTORY OF PRESENT ILLNESS: The patient is a 58-year-old female with past medical history significant amongst other things for a diagnosis of breast cancer and chronic obstructive lung disease for which she states she uses home oxygen intermittently, who seems to have come into the hospital yesterday for an elective procedure. She had left needle localization, partial mastectomy of the upper outer quadrant. Postoperatively, the patient reportedly desaturated. There is a question of element of pulmonary edema. She required bilevel positive air pressure ventilation support. She was transferred to the Intensive Care Unit for close observation postoperatively. When I stopped by to see her, she was resting in bed, feeling a little bit better. She remained on supplemental oxygen. She was on 40% Ventimask. She complained of some pain in the left upper chest at the area of her surgical intervention. She denied any nausea or vomiting. She denied palpitations when asked about a history of tobacco use or abuse, whatsoever. She denies being on any tobacco use, whatsoever. She admits to the diagnosis of obstructive sleep apnea and appears to be compliant with her CPAP therapy. This really is as much of the history of presentation as I have. PAST MEDICAL HISTORY: Again, significant for a diagnosis of breast cancer, COPD, hypertension, anxiety disorder, obstructive sleep apnea and obesity hypoventilation syndrome. PAST SURGICAL HISTORY: She has had a mastectomy. MEDICATIONS: She was on at the time I stopped by to see her, according to the medication administration record included the following: Tylenol 650 mg p.o. q.6 hours p.r.n. mild pain or fevers, albuterol 2.5 mg t.i.d. p.r.n. wheezing, Brovana 15 mcg nebulized q.12 hours, azithromycin 500 mg IV daily, Pulmicort 0.5 mg nebulized q.12 hours, Benadryl 25 mg p.o. q.8 hours p.r.n. itching, docusate sodium 100 mg p.o. b.i.d., Lovenox 40 mg subcutaneously daily, insulin via sliding scale, Solu-Medrol 40 mg IV q.12 hours, Reglan 10 mg p.o. q.6 hours p.r.n. nausea and vomiting, morphine sulfate 2 mg IV q.4 hours p.r.n. moderate pain, Zofran 4 mg IV q.8 hours p.r.n. nausea and vomiting, Percocet 5/325 one tablet p.o. q.6 hours p.r.n. moderate pain, and Spiriva 1 inhalation daily. ALLERGIES: PENICILLINS. Nature of this allergy is unknown. DIET: Morbidly obese. Denies acute weight loss or gain in the preceding few weeks to months. FAMILY AND SOCIAL HISTORY: Lives in the community. Daughter is in the room. She is . She denies alcohol, tobacco, or illicit drug use or abuse. There is a family history of diabetes and rheumatoid arthritis in the family. REVIEW OF SYSTEMS: No loss of consciousness. No new-onset seizures. No new-onset focal weakness. No gross hematochezia or melena. No gross hematuria or dysuria. No hematemesis. No hemoptysis. She denies polydipsia or polyuria. She denies heat or cold intolerance. She still admits occasional nonrestorative sleep. She denied any new lumps, bumps, or swellings on her body. Complete 13-system review of systems obtained. Pertinent positives and/or negatives as in body of history above, otherwise noncontributory. PHYSICAL EXAMINATION: VITAL SIGNS: At presentation, temperature was 97.1 degrees Fahrenheit, pulse of 95, respiratory rate of 20, blood pressure 138/48, O2 sats were 93%, inspired oxygen concentration at that time was not recorded. HEAD, EYES, EARS, NOSE AND THROAT: She is anicteric. No conjunctival erythema. Oropharynx is moist. Mallampati #3 oropharynx. No gross jugular venous distention, no thyromegaly. Grossly, no palpable lymph nodes in the supraclavicular or submandibular lymph node chains. LUNGS: Auscultation of both lung pitt, really apart from diminished bilateral breath sounds and a prolonged expiratory phase, there was no active wheezing. HEART: Heart sounds 1 and 2 were heard at the time of my evaluation, regular rate and rhythm without overt rubs or murmurs. ABDOMEN: Soft, full, bowel sounds positive, nontender, no palpable hepatosplenomegaly. I should mention there is a VARGAS drain coming out of the left side, left upper thorax. EXTREMITIES: Without overt digital clubbing, no cyanosis, no pedal edema. Dorsalis pedis pulses are palpable bilaterally, 2+. NEUROLOGIC: Pupils are equal, round, about 4 mm, reactive to light. Extraocular muscle movements are intact. She moves all 4 extremities spontaneously. SKIN: The skin is of normal turgor without overt cellulitis or rash. She has the postop changes to the left breast. Her mood is normal. Affect was appropriate. LABORATORY DATA: From my review are as follows: Admission white cell count 10.2 with a hemoglobin of 8.7, hematocrit of 27.2, platelet count of 181. ABG showed a pH of 7.53, pCO2 of 37, pO2 of 148 that was on 60% FiO2 at that time. Serum sodium 141, potassium 4.9, chloride 100, bicarbonate 27, BUN 19, creatinine 1.0, glucose 198. Liver function tests essentially within normal limits. No microbiology study to date. Chest x-ray shows implanted left upper anterior chest wall Port-A-Cath. There is gross cardiomegaly, mildly increased interstitial markings, and evidence of mild interstitial edema, no pleural effusions, no gross pneumothorax, no gross bony fracture. ASSESSMENT: 1. [place] hypoxemic respiratory failure. 2. Obstructive sleep apnea. 3. Obesity-hypoventilation syndrome. 4. History of breast cancer status post surgical intervention, left partial mastectomy. 5. Morbid obesity. 6. Acute chronic obstructive pulmonary disease exacerbation. 7. History of hypertension. 8. Anemia that is microcytic. 9. Hard of hearing. PLAN: We will continue bilevel positive air pressure ventilation therapy scheduled at bedtime with p.r.n. daytime use. I will empirically schedule her at 14/8 with a backup rate of 10. Oxygen will be weaned to keep sats greater than or equal to about 90%. I will hold on diuresis at this time, but we will avoid volume overload. Conservative volume management strategies will be recommended. We will continue p.r.n. bronchodilator treatments in terms of short-acting bronchodilators while we continue the long-acting bronchodilators as well as the inhaled corticosteroids and the Spiriva. We will wean her off the Solu-Medrol, transition to oral prednisone. She is appropriately on DVT prophylaxis. She will be placed on GI prophylaxis. Flu and pneumonia vaccination will be addressed per protocol. She is looking stable enough to be transferred certainly to the medical floor. I will put her on remote telemetry overnight and then at that point, we will see how she does. I have discussed the care plan with the patient. I should mention that CT angiogram, I believe, was also done and essentially it was read as a normal CTA, no evidence for pulmonary edema and suggestion of a right lower lobe pneumonia. I will mention that I will switch her to Levaquin for better coverage of possible pneumonia, which may be possibly community-acquired pneumonia and treat her for about 5 days of therapy as well as discontinue the azithromycin. Thank you very much for the consult. We will follow along and make further recommendations as picture progresses/becomes clearer. JOB# [id number] LIVIER/BRANDY MUIR
[2019-02-03] MEDS: BROVANA NEBU IH SCH (07:22)
[2019-02-03] MEDS: PULMICORT IH SCH (07:22)
[2019-02-03 08:08] VITALS: BP 112/50
--- NOTE | 2019-02-03 09:03 | Progress Note ---
Assessment and Plan This is a 58 year old lady with Stage II left breast cancer of the upper outer quadrant-axillary tail, POD# 2 left partial mastectomy with ALND. 1. Patient admitted overnight to ICU after surgery given respiratory distresss, patient known COPD and on BiPap at home. Patient with significant improvement and transferred to the floor yesterday. 2. Left breast incision healing well, inc c/d/i; VARGAS drain to bulb suction. VARGAS drain education. 3. OOB today. 4. José po well. 5. Cont with BiPap at night of patient's regular scheduled. 6. D/C home today. Subjective Date of service: 02/03/19 Principal diagnosis: Stage II left breast cancer of the upper outer quadrant Interval history: POD#2 left partial mastectomy with ALND. Patient admitted to ICU given respiratory distress-significant improvement on BiPap overnight. Transferred to the floor on POD#1 in good condition. Objective - Constitutional Vitals: Vital Signs - 12hr 02/02/02/03/19 02/03/19 23:43 00:27 00:30 Temperature 98.1 F Pulse Rate 94 H 101 H 100 H Pulse Rate [ Anterior Bilateral Throughout] Respiratory 20 20 16 Rate Respiratory Rate [Anterior Bilateral Throughout] Blood Pressure 113/49 O2 Sat by Pulse 96 98 99 Oximetry 02/03/1902/03/02/03/19 04:13 07:20 07:44 Temperature 98.2 F 97.5 F L Pulse Rate 87 82 Pulse Rate [ 84 Anterior Bilateral Throughout] Respiratory 20 18 Rate Respiratory 18 Rate [Anterior Bilateral Throughout] Blood Pressure 125/60 112/50 O2 Sat by Pulse 98 97 93 Oximetry General appearance: Present: no acute distress - EENT Eyes: PERRL, EOM intact ENT: hearing intact, clear oral mucosa Ears: bilateral: normal - Neck Neck: supple, normal ROM - Respiratory Respiratory effort: normal Respiratory: bilateral: CTA - Breasts Breasts: other (left breast incision healing well; c/d/i; VARGAS drain to bulb s uction) - Cardiovascular Rhythm: regular Extremities: no ischemia, pulses intact, pulses symmetrical, No edema, normal temperature, normal color, Full ROM - Gastrointestinal General gastrointestinal: Present: soft, non-tender, non-distended Rectal Exam: deferred - Genitourinary Female genitourinary: deferred - Integumentary Integumentary: clear, warm, dry - Musculoskeletal Musculoskeletal: strength equal bilaterally - Neurologic Neurologic: CNII-XII intact, moves all extremities - Psychiatric Psychiatric: appropriate mood/affect, intact judgment & insight, memory intact, cooperative - Labs CBC & Chem 7: 02/01/19 20:14 02/01/19 20:14 Labs: Abnormal lab results 02/02/19 02/02/19 02/02/19 Range/Units 10:05 12:09 16:11 POC Glucose 253 H 244 H 299 H (70-105) Hemoglobin A1c (4-6) % 02/02/19 02/03/19 02/03/19 Range/Units 22:25 05:14 08:03 POC Glucose 244 H 143 H (70-105) Hemoglobin A1c 6.6 H (4-6) % Medications & Allergies - Medications Allergies/Adverse Reactions: Allergies Penicillins Adverse Reaction (Verified 09/27/18 12:30) "PASSED OUT" Home Medications: Home Medications Medication Instructions Recorded Confirmed Last Taken Type Albuterol Sulfate [Albuterol 0.63% 0.63 mg IH TID PRN 11/29/17 01/30/19 08/29/18 21:00 History NEBS] Atorvastatin Calcium [Lipitor] 80 mg PO DAILY 11/29/17 01/30/19 08/29/18 21:00 History Insulin Glargine,Hum.rec.anlog 40 units SQ QHS 11/29/17 01/30/19 08/29/18 21:00 History [Lantus] Insulin Lispro [HumaLOG VIAL] 2 units SQ AC 11/29/17 01/30/19 08/29/18 09:00 History Lisinopril [Zestril TAB] 20 mg PO QDAY 11/29/17 01/30/19 08/29/18 09:00 History Metformin HCl [Glucophage] 1,000 mg PO BID 11/29/17 01/30/19 08/29/18 21:00 History Mometasone/Formoterol [Dulera 100 2 puff IH BID 11/29/17 01/30/19 09/28/18 21:00 History Mcg/5 Mcg Inhaler] Montelukast [Singulair] 10 mg PO QPM 11/29/17 01/30/19 09/29/18 06:00 History Tiotropium [Spiriva] 18 mcg IH QDAY 11/29/17 01/30/19 09/28/18 09:00 History methOCARBAMOL [Robaxin TAB] 750 mg PO Q4H PRN 11/29/17 01/30/19 09/28/18 21:00 History Venlafaxine HCl [Venlafaxin ER] 75 mg PO QDAY 08/26/18 01/30/19 09/29/18 06:00 History Albuterol Sulfate [Proventil Hfa] 6.7 gm IH TID PRN 08/29/18 01/30/19 08/29/18 21:00 History Aspirin EC 325 mg PO QDAY 08/29/18 01/30/19 08/23/18 History amLODIPine [Norvasc] 10 mg PO DAILY 08/29/18 01/30/19 09/28/18 06:00 History Ibuprofen [Ibuprofen 800] 800 mg PO TID PRN #30 tablet 08/30/18 01/30/19 Unknown Rx LORazepam [Ativan] 1 mg PO TID PRN 09/27/18 01/30/19 09/29/18 06:00 History HYDROcodone/APAP 5-325 [[place] 1 each PO Q6HR PRN #20 tablet 09/29/18 01/30/19 Unknown Rx 5/325] Bupropion HBr 150 mg PO DAILY 01/20/19 01/30/19 Unknown History Furosemide [Lasix TAB] 20 mg PO DAILY PRN 01/20/19 01/30/19 Unknown History Magnesium 400 mg PO TID 01/20/19 01/30/19 Unknown History levoFLOXacin [Levofloxacin] 500 mg PO QDAY #5 tablet 02/03/19 Unknown Rx oxyCODONE /ACETAMINOPHEN [Percocet 1 tab PO Q6HR PRN #15 tablet 02/03/19 Unknown Rx 5/325] Active Medications: Generic Name Dose Route Start Last Admin Trade Name Freq PRN Reason Stop Dose Admin Acetaminophen 650 mg 02/01/19 14:56 Tylenol PO Q6H PRN Pain MILD(1-3)/Fever >100.5/SINGER Acetaminophen/Hydrocodone [place] 1 each 02/02/19 14:12 [place] 5/325 PO Q6HR PRN Pain Albuterol 2.5 mg 02/01/19 15:34 Proventil IH TIDRT PRN Wheezing Albuterol 2.5 mg 02/01/19 17:47 Proventil IH Q3HRT PRN Shortness Of Breath Arformoterol Tartrate 15 mcg 02/01/19 20:00 02/03/19 07:22 Maty Nebu IH 15 mcg Q12HRT ISELA Administration Budesonide 0.5 mg 02/01/19 20:00 02/03/19 07:22 Pulmicort IH 0.5 mg Q12HRT ISELA Administration Dextrose 50 ml 02/01/19 20:38 D50w (25gm) Syringe IV PRN PRN Hypoglycemia Diphenhydramine HCl 25 mg 02/01/19 14:56 Benadryl PO Q8H PRN Itching Docusate Sodium 100 mg 02/01/19 22:00 02/02/19 22:58 Colace PO 100 mg BID ISELA Administration Enoxaparin Sodium 40 mg 02/01/19 22:00 02/02/19 22:59 Lovenox SUB-Q 40 mg QDAY@2200 ISELA Administration Famotidine 20 mg 02/03/19 10:00 Pepcid PO QDAY ISELA Furosemide 20 mg 02/02/19 14:12 Lasix PO DAILY PRN Edema Levofloxacin/Dextrose 750 mg in 150 mls @ 100 mls/hr 02/02/19 14:00 02/02/19 15:30 Levaquin 750mg/150ml IV Infused Q24HR [facility] Infusion Protocol Insulin Glargine 40 units 02/02/19 22:00 02/02/19 22:57 Lantus SUB-Q 40 units QHS ISELA Administration Insulin Human Lispro 0 unit 02/02/19 16:30 02/02/19 23:08 Humalog SUB-Q 4 unit ACHS ISELA Administration Protocol Insulin Human Lispro 3 unit 02/02/19 16:30 02/02/19 16:30 Humalog SUB-Q 3 unit AC ISELA Administration Metoclopramide HCl 10 mg 02/01/19 14:56 Reglan PO Q6H PRN Nausea And Vomiting Morphine Sulfate 2 mg 02/01/19 14:58 Morphine IV Q4H PRN Pain, Moderate (4-6) Ondansetron HCl 4 mg 02/01/19 14:56 Zofran IV Q8H PRN N/V unrelieved by Reglan Oxycodone/Acetaminophen 1 tab 02/01/19 14:56 02/02/19 23:04 Percocet 5/325 PO 1 tab Q6H PRN Administration Pain, Moderate (4-6) Prednisone 40 mg 02/03/19 10:00 Deltasone PO QDAY ISELA Sodium Chloride 10 ml 02/01/19 14:56 02/02/19 20:00 Sodium Chloride Flush Syringe 10 Ml IV 10 ml PRN PRN Administration LINE FLUSH Sodium Chloride 10 ml 02/01/19 22:00 02/02/19 23:16 Sodium Chloride Flush Syringe 10 Ml IV 10 ml BID ISE[facility] Administration Tiotropium [place] 1 puff 02/02/19 10:00 02/02/19 13:06 Spiriva IH Not Given QDAY ISELA
[2019-02-03] MEDS ORDERED: PEPCID PO SCH (10:00)
[2019-02-03] MEDS ORDERED: DELTASONE PO SCH (10:00)
[2019-02-03] MEDS: SPIRIVA IH SCH (10:33)
--- NOTE | 2019-02-03 12:29 | Progress Note ---
Assessment and Plan Acute hypoxemic respiratory failure. Obstructive sleep apnea/obesity-hypoventilation syndrome. Morbid obesity. History of asthma/chronic obstructive pulmonary disease. Status post mastectomy. - continue BIPAP qhs to aid alveolar recruitment - outpatient pulmonary and sleep clinic f/up - continue supplemental oxygen and wean to keep O2 sat's > 90% - continue bronchodilators with pulmonary hygiene per RT - complete empiric AB's therapy - continue GI & VTE prophylaxis - continue other care per attending / other consultants ... re-evaluate in am & prn Subjective Date of service: 02/03/19 Principal diagnosis: Ac hypoxemic resp failure; [place]/OHS; S/P mastectomy; COPD; morbid obesity Interval history: Patient is seen today for: Acute hypoxemic respiratory failure; Obstructive sleep apnea/obesity-hypoventilation syndrome; Morbid obesity; History of asthma/chronic obstructive pulmonary disease; Status post mastectomy Seen and examined at bedside; 24hour events reviewed; nursing and respiratory care staff consulted; no adverse overnight events reported to me; resting peacef ully in bed; looks and feels better; denies acute chest pains or palpitations Objective Vital Signs - 12hr 02/03/19 02/03/19 02/03/19 00:30 04:13 07:20 Temperature 98.2 F Pulse Rate 100 H 87 Pulse Rate [ 84 Anterior Bilateral Throughout] Respiratory 16 20 Rate Respiratory 18 Rate [Anterior Bilateral Throughout] Blood Pressure 125/60 O2 Sat by Pulse 99 98 97 Oximetry 02/03/19 07:44 Temperature 97.5 F L Pulse Rate 82 Pulse Rate [ Anterior Bilateral Throughout] Respiratory 18 Rate Respiratory Rate [Anterior Bilateral Throughout] Blood Pressure 112/50 O2 Sat by Pulse 93 Oximetry Constitutional: no acute distress, other (middle aged obese CF, normocephalic and atraumatic with mildly increased resp effort at rest) Eyes: non-icteric ENT: oropharynx moist, other (mallampati 3 - 4) Neck: supple, no lymphadenopathy, other (large neck circumference) Effort: mildly labored Ascultation: Bilateral: clear, diminished breath sounds Percussion: Bilateral: not dull Cardiovascular: regular rate and rhythm Gastrointestinal: normoactive bowel sounds, soft, non-tender, non-distended Integumentary: other (post-op scars) Extremities: no cyanosis, no edema, pulses normal, no ischemia or petechiae Neurologic: normal mental status, non-focal exam, pupils equal and round, CN II- XII normal Psychiatric: mood appropriate, affect normal CBC and BMP: 02/01/19 20:14 02/01/19 20:14 ABG, PT/INR, D-dimer: ABG POC ABG pH 7.534 (7.35-7.45) H 02/01/19 21:07 POC ABG pCO2 37.2 (35-45) 02/01/19 21:07 POC ABG pO2 148 (80-105) H 02/01/19 21:07 POC ABG HCO3 31.4 (22-26 mml/L) 02/01/19 21:07 POC ABG Total CO2 32 (23-27mmol/L) 02/01/19 21:07 POC ABG O2 Sat 100 02/01/19 21:07 Abnormal lab findings: Abnormal Labs 02/01/19 02/01/19 02/01/19 08:32 15:34 17:28 RBC Hgb Hct MCV RDW Lymph % (Auto) [place] % (Auto) Lymph # [place] # Seg Neutrophils % Seg Neutrophils # POC ABG pH POC ABG pCO2 POC ABG pO2 BUN Glucose POC Glucose 141 H 249 H 196 H Hemoglobin A1c Total Protein Albumin 02/01/19 02/01/19 02/01/19 18:42 19:02 20:14 RBC 2.77 L Hgb 8.7 L Hct 27.2 L MCV 98 H RDW 22.4 H Lymph % (Auto) 3.5 L [place] % (Auto) 8.8 H Lymph # 0.4 L [place] # 0.9 H Seg Neutrophils % 87.4 H Seg Neutrophils # 8.9 H POC ABG pH 7.307 L POC ABG pCO2 50.8 H POC ABG pO2 63 L BUN Glucose POC Glucose 185 H Hemoglobin A1c Total Protein Albumin 02/01/19 02/01/19 02/02/19 20:14 21:07 00:23 RBC Hgb Hct MCV RDW Lymph % (Auto) [place] % (Auto) Lymph # [place] # Seg Neutrophils % Seg Neutrophils # POC ABG pH 7.534 H POC ABG pCO2 POC ABG pO2 148 H BUN 19 H Glucose 198 H POC Glucose 239 H Hemoglobin A1c Total Protein 6.1 L Albumin 3.6 L 02/02/19 02/02/19 02/02/19 06:41 10:05 12:09 RBC Hgb Hct MCV RDW Lymph % (Auto) [place] % (Auto) Lymph # [place] # Seg Neutrophils % Seg Neutrophils # POC ABG pH POC ABG pCO2 POC ABG pO2 BUN Glucose POC Glucose 262 H 253 H 244 H Hemoglobin A1c Total Protein Albumin 02/02/19 02/02/19 02/03/19 16:11 22:25 05:14 RBC Hgb Hct MCV RDW Lymph % (Auto) [place] % (Auto) Lymph # [place] # Seg Neutrophils % Seg Neutrophils # POC ABG pH POC ABG pCO2 POC ABG pO2 BUN Glucose POC Glucose 299 H 244 H Hemoglobin A1c 6.6 H Total Protein Albumin 02/03/19 02/03/19 08:03 12:27 RBC Hgb Hct MCV RDW Lymph % (Auto) [place] % (Auto) Lymph # [place] # Seg Neutrophils % Seg Neutrophils # POC ABG pH POC ABG pCO2 POC ABG pO2 BUN Glucose POC Glucose 143 H 228 H Hemoglobin A1c Total Protein Albumin CT scan - chest: image reviewed (poor contrast phase timing; no gross filling defects consistent with large PE; RLL atelectasis / infiltrate) Allied health notes reviewed: nursing
--- NOTE | 2019-02-03 13:02 | Progress Note ---
Hospitalist Physical - Constitutional Vitals: Temp Pulse Resp BP Pulse Ox 97.5 F L 82 18 112/50 93 02/03/19 07:44 02/03/19 07:44 02/03/19 07:44 02/03/19 07:44 02/03/19 07:44 General appearance: Present: no acute distress Results - Labs CBC & Chem 7: 02/01/19 20:14 02/01/19 20:14 Labs: Laboratory Last Values WBC 10.2 K/mm3 (4.5-11.0) 02/01/19 20:14 RBC 2.77 M/mm3 (3.65-5.03) L 02/01/19 20:14 Hgb 8.7 gm/dl (10.1-14.3) L 02/01/19 20:14 Hct 27.2 % (30.3-42.9) L 02/01/19 20:14 MCV 98 fl (79-97) H 02/01/19 20:14 MCH 32 pg (28-32) 02/01/19 20:14 MCHC 32 % (30-34) 02/01/19 20:14 RDW 22.4 % (13.2-15.2) H 02/01/19 20:14 Plt Count 181 K/mm3 (140-440) 02/01/19 20:14 Lymph % (Auto) 3.5 % (13.4-35.0) L 02/01/19 20:14 [place] % (Auto) 8.8 % (0.0-7.3) H 02/01/19 20:14 Eos % (Auto) 0.1 % (0.0-4.3) 02/01/19 20:14 Baso % (Auto) 0.2 % (0.0-1.8) 02/01/19 20:14 Lymph # 0.4 K/mm3 (1.2-5.4) L 02/01/19 20:14 [place] # 0.9 K/mm3 (0.0-0.8) H 02/01/19 20:14 Eos # 0.0 K/mm3 (0.0-0.4) 02/01/19 20:14 Baso # 0.0 K/mm3 (0.0-0.1) 02/01/19 20:14 Seg Neutrophils % 87.4 % (40.0-70.0) H 02/01/19 20:14 Seg Neutrophils # 8.9 K/mm3 (1.8-7.7) H 02/01/19 20:14 POC ABG pH 7.534 (7.35-7.45) H 02/01/19 21:07 POC ABG pCO2 37.2 (35-45) 02/01/19 21:07 POC ABG pO2 148 (80-105) H 02/01/19 21:07 POC ABG HCO3 31.4 (22-26 mml/L) 02/01/19 21:07 POC ABG Total CO2 32 (23-27mmol/L) 02/01/19 21:07 POC ABG O2 Sat 100 02/01/19 21:07 POC ABG Base Excess 9 ((-2) - (+3)mmol/L) 02/01/19 21:07 60 % 02/01/19 21:07 Sodium 141 mmol/L (137-145) 02/01/19 20:14 Potassium 4.9 mmol/L (3.6-5.0) 02/01/19 20:14 Chloride 100.1 mmol/L (98-107) 02/01/19 20:14 Carbon Dioxide 27 mmol/L (22-30) 02/01/19 20:14 19 mmol/L 02/01/19 20:14 BUN 19 mg/dL (7-17) H 02/01/19 20:14 1.0 mg/dL (0.7-1.2) 02/01/19 20:14 Estimated GFR 57 ml/min 02/01/19 20:14 19 % 02/01/19 20:14 Glucose 198 mg/dL (65-100) H 02/01/19 20:14 POC Glucose 228 (70-105) H 02/03/19 12:27 6.6 % (4-6) H 02/03/19 05:14 Calcium 8.6 mg/dL (8.4-10.2) 02/01/19 20:14 0.30 mg/dL (0.1-1.2) 02/01/19 20:14 AST 34 units/L (5-40) 02/01/19 20:14 ALT 48 units/L (7-56) 02/01/19 20:14 126 units/L (35-129) 02/01/19 20:14 6.1 g/dL (6.3-8.2) L 02/01/19 20:14 3.6 g/dL (3.9-5) L 02/01/19 20:14 1.4 % 02/01/19 20:14 Active Medications - Current Medications Current Medications: Generic Name Dose Route Start Last Admin Trade Name Freq PRN Reason Stop Dose Admin Acetaminophen 650 mg 02/01/19 14:56 Tylenol PO Q6H PRN Pain MILD(1-3)/Fever >100.5/SINGER Acetaminophen/Hydrocodone Bitart 1 each 02/02/19 14:12 Jolo 5/325 PO Q6HR PRN Pain Albuterol 2.5 mg 02/01/19 15:34 Proventil IH TIDRT PRN Wheezing Albuterol 2.5 mg 02/01/19 17:47 Proventil IH Q3HRT PRN Shortness Of Breath Arformoterol Tartrate 15 mcg 02/01/19 20:00 02/03/19 07:22 Brovana Nebu IH 15 mcg Q12HRT ISELA Administration Budesonide 0.5 mg 02/01/19 20:00 02/03/19 07:22 Pulmicort IH 0.5 mg Q12HRT ISELA Administration Dextrose 50 ml 02/01/19 20:38 D50w (25gm) Syringe IV PRN PRN Hypoglycemia Diphenhydramine HCl 25 mg 02/01/19 14:56 Benadryl PO Q8H PRN Itching Docusate Sodium 100 mg 02/01/19 22:00 02/02/19 22:58 Colace PO 100 mg BID ISELA Administration Enoxaparin Sodium 40 mg 02/01/19 22:00 02/02/19 22:59 Lovenox SUB-Q 40 mg QDAY@2200 ISELA Administration Famotidine 20 mg 02/03/19 10:00 Pepcid PO QDAY ISELA Furosemide 20 mg 02/02/19 14:12 Lasix PO DAILY PRN Edema Levofloxacin/Dextrose 750 mg in 150 mls @ 100 mls/hr 02/02/19 14:00 02/02/19 15:30 Levaquin 750mg/150ml IV Infused Q24HR ISELA Infusion Protocol Insulin Glargine 40 units 02/02/19 22:00 02/02/19 22:57 Lantus SUB-Q 40 units QHS ISELA Administration Insulin Human Lispro 0 unit 02/02/19 16:30 02/02/19 23:08 Humalog SUB-Q 4 unit ACHS ISELA Administration Protocol Insulin Human Lispro 3 unit 02/02/19 16:30 02/02/19 16:30 Humalog SUB-Q 3 unit AC ISELA Administration Metoclopramide HCl 10 mg 02/01/19 14:56 Reglan PO Q6H PRN Nausea And Vomiting Morphine Sulfate 2 mg 02/01/19 14:58 Morphine IV Q4H PRN Pain, Moderate (4-6) Ondansetron HCl 4 mg 02/01/19 14:56 Zofran IV Q8H PRN N/V unrelieved by Reglan Oxycodone/Acetaminophen 1 tab 02/01/19 14:56 02/02/19 23:04 Percocet 5/325 PO 1 tab Q6H PRN Administration Pain, Moderate (4-6) Prednisone 40 mg 02/03/19 10:00 Deltasone PO QDAY ISELA Sodium Chloride 10 ml 02/01/19 14:56 02/02/19 20:00 Sodium Chloride Flush Syringe 10 Ml IV 10 ml PRN PRN Administration LINE FLUSH Sodium Chloride 10 ml 02/01/19 22:00 02/02/19 23:16 Sodium Chloride Flush Syringe 10 Ml IV 10 ml BID ISELA Administration Tiotropium [place] 1 puff 02/02/19 10:00 02/03/19 10:33 Spiriva IH Not Given QDAY [facility] Nutrition/Malnutrition Assess - Dietary Evaluation Nutrition/Malnutrition Findings: Nutrition Notes Start: 02/02/19 14: 00 Freq: Status: Active Protocol: Document 02/02/19 14:00 RM (Rec: 02/02/19 14:08 RM [id number]) Nutrition Notes Need for Assessment generated from: MD Order Initial or Follow up Brief Note Current Diagnosis COPD,Diabetes,Hypertension, Respiratory Failure Other Pertinent Diagnosis Breast CA, Anxiety, Asthma Current Diet Consistent CHO Labs/Tests BG 198 POC 253 Pertinent Medications Solu-Medrol Subjective/Other Information Consulted for DM diet education. NPO in place earlier today. Consistent CHO ordered later today. Pt w/venturi mask at time of visit.Pt stated that she has not eaten anything yet but she wants to eat soon. No A1c in record. Pt stated that he BG is likely high d/t the steroid she has been receiving. Stated that her BG is usually well controlled at home. Burn Absent Trauma Absent Nutrition Intervention Follow-Up By: 02/06/19 Additional Comments Follow for PO intakes
== END 2019-02-03 12:45 | disposition home or self-care (01) | DRG 582 ==
LOC: OR 07:59 → OB 14:56 → OBSVTOIN 17:47 → CC1 17:52 → 3B-SURG 02-02 16:58
PROVIDERS: ADMIT Surgery; ATTEND Surgery
PROC: 0HBU0ZZ Excision of Left Breast, Open Approach (ICD-10-PCS; principal; 2019-02-01)
PROC: 4A033R1 Measurement of Arterial Saturation, Peripheral, Percutaneous Approach (ICD-10-PCS; 2019-02-01)
PROC: 5A09357 Assistance with Respiratory Ventilation, Less than 24 Consecutive Hours, Continuous Positive Airway Pressure (ICD-10-PCS; 2019-02-01)
PROC: 5A09357 Assistance with Respiratory Ventilation, Less than 24 Consecutive Hours, Continuous Positive Airway Pressure (ICD-10-PCS; 2019-02-03)
DX: C50.412 Malignant neoplasm of upper-outer quadrant of left female breast (principal); J96.21 Acute and chronic respiratory failure with hypoxia; J18.9 Pneumonia, unspecified organism; J44.1 Chronic obstructive pulmonary disease with (acute) exacerbation; I10 Essential (primary) hypertension; E11.9 Type 2 diabetes mellitus without complications; E66.2 Morbid (severe) obesity with alveolar hypoventilation; F41.9 Anxiety disorder, unspecified; Z88.0 Allergy status to penicillin; Z68.38 Body mass index [BMI] 38.0-38.9, adult; Z79.4 Long term (current) use of insulin
CPT/HCPCS: 31720; 36415; 36600; 71045; 71275; 76098; 78800; 80053; 82803; 82962; 83036; 85025; 87116; 88305; 88307; 88309; 88331; 88333; 88341; 88342; 94640; 94660; 94760; G0378; A9541; J0330; J0456; J1650; J1815; J1940; J1956; J2250; J2370; J2405; J2704; J2920; J2930; J3010; J3370; J7050; J7120; J7512; Q9967; Q9968

== ENCOUNTER 2020-01-10 09:58 | Outpatient (CLI) | payer MEDICAID ==
--- NOTE | 2020-01-10 12:46 | Magnetic Resonance Report ---
BILATERAL BREAST MRI WITH AND WITHOUT CONTRAST CLINICAL INFORMATION/INDICATION: Personal history of breast cancer. Other disorders of breast. TECHNICAL: Coronal STIR, axial T1 and T2-weighted fat sat images were obtained precontrast. 18 cc Mul tiHance contrast was injected intravenously and serial axial T1 weighted images with fat saturation w ere obtained. 3-D MIP projections, kinetic analysis and subtraction imaging was utilized to evaluate. A dedicated 8-channel breast coil was used for image acquisition. COMPARISON: 12/08/2019, 06/29/2019 FINDINGS: Right breast: Scattered fibroglandular tissue is noted with low background parenchymal enhancement. N o mass, other suspicious enhancement, lymphadenopathy or other significant abnormality is seen. Left breast: There is moderate background parenchymal enhancement. Marked skin thickening is noted wi th generalized edema as described previously. No mass, other suspicious enhancement, lymphadenopathy or other significant abnormality is seen. Additional findings: None. IMPRESSION: Persistent left breast edema and skin thickening without MRI evidence of malignancy. Sequela of prior therapy is a consideration. A follow-up diagnostic left mammogram in 6 months is recommended. Follow up recommendation: Short term follow up in 6 months. BI-RADS Category 3: Probably Benign. Followup in 6 months. Signer Name: Aaron Sellers MD Signed: 01/10/2020 12:42 PM Workstation Name: [id number]
== END 2020-01-10 09:59 | disposition home or self-care (01) ==
LOC: SPVIMAG 09:58
PROVIDERS: ATTEND Surgery
DX: R23.4 Changes in skin texture (principal); N64.89 Other specified disorders of breast; R60.0 Localized edema; Z85.3 Personal history of malignant neoplasm of breast
CPT/HCPCS: A9577; C8908; 77049

== ENCOUNTER 2021-01-08 09:14 | Outpatient (CLI) | payer MEDICAID ==
--- NOTE | 2021-01-08 11:07 | Ultrasound Report ---
BILATERAL DIGITAL DIAGNOSTIC MAMMOGRAM WITH CAD CONVENTIONAL, 01/08/2021 LEFT LIMITED BREAST ULTRASOUND CLINICAL INFORMATION / INDICATION: Patient has a history of left breast cancer status post lumpectomy and radiation. Patient presents for evaluation of left breast pain and erythema. TECHNIQUE: Digital bilateral mammographic imaging was performed. Limited ultrasound was performed. Th is examination was interpreted with the benefit of Computer-Aided Detection (CAD) analysis. COMPARISON: Prior mammograms 12/08/2019 and 06/29/2019 FINDINGS: Breast Density: There are scattered areas of fibroglandular density. MAMMOGRAPHIC FINDINGS: No dominant mass, suspicious calcifications, or architectural distortion in ei ther breast. There is persistent but improving diffuse left breast skin and trabecular thickening. Th ere is stable benign postlumpectomy change seen in the posterior upper outer quadrant of the left erwin ast. ULTRASOUND FINDINGS: Targeted ultrasound evaluation was performed of the area of interest. Targeted ultrasound of the areas of pain and erythema throughout the left breast reveal diffuse skin thickeni ng. No underlying suspicious sonographic abnormality identified. IMPRESSION: 1. Diffuse left breast skin and trabecular thickening is improving compared with prior mammogram, sug gesting that this represents evolving posttreatment change. No suspicious mammographic or sonographic abnormality identified. Follow up recommendation: Routine yearly BI-RADS Category 2: Benign. A "normal" or negative report should not discourage follow up or biopsy of a clinically significant f inding. A written summary of these findings will be mailed to the patient. The patient will be entered into a mammography reporting system which will generate a reminder letter for the patient's next appointmen t at the appropriate interval. According to the [employer], yearly mammograms are recommended starting at age 40 and continuing as long as a woman is in good health. Breast MRI is recommended for women with an sindy roximately 20-25% or greater lifetime risk of breast cancer, including women with a strong family his tory of breast or ovarian cancer and women who have been treated for Hodgkin's disease. Signer Name: Selma Lopez MD Signed: 01/08/2021 11:02 AM Workstation Name: [id number]
== END 2021-01-08 09:15 | disposition home or self-care (01) ==
LOC: SPVWC 09:14
PROVIDERS: ATTEND Surgery
DX: N64.4 Mastodynia (principal); N64.89 Other specified disorders of breast; R92.8 Other abnormal and inconclusive findings on diagnostic imaging of breast
CPT/HCPCS: 77066